=== PATIENT | male | born 1995 | race Caucasian/White ===

== ENCOUNTER 2017-07-15 11:11 | Inpatient (IN) | payer MEDICAID, OTHER ==
[2017-07-15] MEDS ORDERED: MIDAZOLAM 1 MG/ML 2 ML INJ (12:18)
[2017-07-15] MEDS ORDERED: PHENYLephrine (100 MCG/ML) 5ML SYG (12:26)
[2017-07-15] MEDS: FAMOTIDINE 20 MG TAB PO ×2 (12:30→20:19)
[2017-07-15] MEDS ORDERED: niCARdipine 25 MG in SOD CHLORIDE 0.9% 250 ML IV (12:30)
[2017-07-15] MEDS: LEVETIRACETAM 500 MG (PMX) 100 ML IVPB ×2 (13:00→20:18)
[2017-07-15] MEDS ORDERED: morphine 10 MG INJ (13:12)
[2017-07-15] MEDS ORDERED: ROCURONIUM 50 MG INJ ×2 (13:43→13:44)
[2017-07-15] MEDS ORDERED: CEFAZOLIN 1 GM INJ (13:44)
[2017-07-15] MEDS ORDERED: MEPERIDINE 25 MG INJ IV (14:30)
[2017-07-15] MEDS ORDERED: morphine (1 MG/ML) 10ML SYRINGE IV ×2 (14:30)
[2017-07-15] MEDS ORDERED: ONDANSETRON 4 MG INJ IV (14:30)
[2017-07-15] MEDS ORDERED: DIPHENHYDRAMINE 50 MG INJ IV (14:30)
[2017-07-15] MEDS ORDERED: FENTAnyl 50 MCG/ML VIAL IV (14:30)
[2017-07-15] MEDS: POLYMYXIN/BACITRACIN 1L IRRIG (14:42)
[2017-07-15 16:28] LABS: ADD MAN DIFF? NO
[2017-07-15 16:29] LABS: BASOPHILS % 0.2 % (0.0-2.0); EOSINOPHILS # 0.1 10^3/ul (0.0-0.5); EOSINOPHILS % 2.3 % (0.0-7.0); HEMATOCRIT 34.7 % (42.0-52.0); HEMOGLOBIN 11.2 g/dl (14.0-18.0); LYMPHOCYTES # 1.6 10^3/ul (0.8-2.9); LYMPHOCYTES % 24.9 % (15.0-51.0); MEAN CORPUSCULAR HGB CONC 32.3 g/dl (32.0-37.0); MEAN CORPUSCULAR VOLUME 83.6 fl (82.0-101.0); MEAN PLATELET VOLUME 9.1 fl (7.4-10.4); MONOCYTE # 0.4 10^3/ul (0.3-0.9); MONOCYTES % 6.4 % (0.0-11.0); NEUTROPHIL # 4.1 10^3/ul (1.6-7.5); NEUTROPHILS % 65.6 % (39.0-77.0); PLATELET COUNT 240 10^3/UL (140-415); RED BLOOD COUNT 4.15 10^6/ul (4.70-6.10); RED CELL DISTRIBUTION WIDTH 14.6 % (11.5-14.5)
[2017-07-15 16:29] LABS: WHITE BLOOD COUNT 6.2 10^3/ul (4.8-10.8)
[2017-07-15 16:50] LABS: ANION GAP 12 (8-16); CARBON DIOXIDE 29 mmol/L (21-31); CHLORIDE 105 mmol/L (97-110); GLUCOSE 101 mg/dl (70-220)
[2017-07-15 16:52] LABS: BLOOD UREA NITROGEN 7 mg/dl (7-20); CALCIUM 9.4 mg/dl (8.4-10.2); CREATININE 0.69 mg/dl (0.61-1.24); POTASSIUM 3.7 mmol/L (3.5-5.1); SODIUM 142 mmol/L (135-144)
[2017-07-15] MEDS ORDERED: ONDANSETRON 4 MG INJ (20:13)
[2017-07-16] MEDS: ONDANSETRON 4 MG INJ IV ×2 (01:30→07:33)
[2017-07-16] MEDS: morphine 2 MG INJ IV ×3 (03:16→17:54)
[2017-07-16] MEDS: LEVETIRACETAM 500 MG (PMX) 100 ML IVPB ×2 (08:18→20:42)
[2017-07-16] MEDS: FAMOTIDINE 20 MG TAB PO ×2 (08:18→20:42)
[2017-07-16] MEDS: METOCLOPRAMIDE 10 MG INJ IV ×3 (08:18→17:54)
[2017-07-16 08:46] LABS: TOTAL PROTEIN,CSF 14 mg/dl (12-60)
[2017-07-16] MEDS ORDERED: VITAMIN A & D 5 GM OINT PACKET TOP (17:51)
[2017-07-17] MEDS: METOCLOPRAMIDE 10 MG INJ IV ×4 (00:10→17:16)
[2017-07-17] MEDS: HYDROCODONE/APAP (5/325) TAB PO ×2 (03:21→13:08)
[2017-07-17] MEDS: FAMOTIDINE 20 MG TAB PO ×2 (09:05→21:39)
[2017-07-17] MEDS: LEVETIRACETAM 500 MG (PMX) 100 ML IVPB ×2 (09:05→21:40)
[2017-07-18] MEDS: METOCLOPRAMIDE 10 MG INJ IV ×4 (01:28→17:52)
[2017-07-18] MEDS: LEVETIRACETAM 500 MG (PMX) 100 ML IVPB ×2 (08:39→22:08)
[2017-07-18] MEDS: FAMOTIDINE 20 MG TAB PO ×2 (08:39→22:08)
[2017-07-19] MEDS: METOCLOPRAMIDE 10 MG INJ IV ×4 (01:20→17:24)
[2017-07-19 07:03] LABS: ADD MAN DIFF? NO
[2017-07-19 07:09] LABS: BASOPHILS % 0.4 % (0.0-2.0); EOSINOPHILS # 0.3 10^3/ul (0.0-0.5); EOSINOPHILS % 3.1 % (0.0-7.0); HEMATOCRIT 36.1 % (42.0-52.0); HEMOGLOBIN 11.6 g/dl (14.0-18.0); LYMPHOCYTES # 1.5 10^3/ul (0.8-2.9); LYMPHOCYTES % 17.4 % (15.0-51.0); MEAN CORPUSCULAR HEMOGLOBIN 26.8 pg (29.0-33.0); MEAN CORPUSCULAR HGB CONC 32.1 g/dl (32.0-37.0); MEAN CORPUSCULAR VOLUME 83.4 fl (82.0-101.0); MEAN PLATELET VOLUME 9.4 fl (7.4-10.4); MONOCYTE # 0.5 10^3/ul (0.3-0.9); NEUTROPHIL # 6.1 10^3/ul (1.6-7.5); NEUTROPHILS % 72.5 % (39.0-77.0); PLATELET COUNT 275 10^3/UL (140-415); RED BLOOD COUNT 4.33 10^6/ul (4.70-6.10); RED CELL DISTRIBUTION WIDTH 14.9 % (11.5-14.5)
[2017-07-19 07:09] LABS: WHITE BLOOD COUNT 8.4 10^3/ul (4.8-10.8)
[2017-07-19 07:46] LABS: ANION GAP 15 (8-16); BLOOD UREA NITROGEN 10 mg/dl (7-20); CALCIUM 9.5 mg/dl (8.4-10.2); CARBON DIOXIDE 26 mmol/L (21-31); CHLORIDE 105 mmol/L (97-110); CREATININE 0.57 mg/dl (0.61-1.24); GLUCOSE 114 mg/dl (70-220); POTASSIUM 3.9 mmol/L (3.5-5.1); SODIUM 142 mmol/L (135-144)
[2017-07-19] MEDS: FAMOTIDINE 20 MG TAB PO ×2 (08:52→20:54)
[2017-07-19] MEDS: LEVETIRACETAM 500 MG (PMX) 100 ML IVPB ×2 (08:52→20:54)
[2017-07-19] MEDS: HYDROCODONE/APAP (5/325) TAB PO (20:56)
[2017-07-20] MEDS: METOCLOPRAMIDE 10 MG INJ IV ×4 (00:47→17:49)
[2017-07-20] MEDS ORDERED: ROCURONIUM 50 MG INJ ×2 (06:42→09:37)
[2017-07-20] MEDS ORDERED: CEFAZOLIN 1 GM INJ (07:00)
[2017-07-20] MEDS ORDERED: GELATIN SIZE 100 SPONGE (07:05)
[2017-07-20] MEDS ORDERED: BUPIVACAINE 0.5%/EPI (SDV) 30 ML INJ (07:05)
[2017-07-20] MEDS ORDERED: THROMBIN 5000 UNIT VIAL (07:06)
[2017-07-20 07:42] LABS: ADD MAN DIFF? NO
[2017-07-20 07:49] LABS: BASOPHILS % 0.3 % (0.0-2.0); EOSINOPHILS # 0.2 10^3/ul (0.0-0.5); EOSINOPHILS % 1.8 % (0.0-7.0); HEMATOCRIT 36.6 % (42.0-52.0); HEMOGLOBIN 11.9 g/dl (14.0-18.0); LYMPHOCYTES # 1.3 10^3/ul (0.8-2.9); LYMPHOCYTES % 11.6 % (15.0-51.0); MEAN CORPUSCULAR HEMOGLOBIN 26.9 pg (29.0-33.0); MEAN CORPUSCULAR HGB CONC 32.5 g/dl (32.0-37.0); MEAN CORPUSCULAR VOLUME 82.6 fl (82.0-101.0); MEAN PLATELET VOLUME 9.5 fl (7.4-10.4); MONOCYTE # 0.5 10^3/ul (0.3-0.9); MONOCYTES % 4.5 % (0.0-11.0); NEUTROPHIL # 8.9 10^3/ul (1.6-7.5); NEUTROPHILS % 81.3 % (39.0-77.0); PLATELET COUNT 276 10^3/UL (140-415); RED BLOOD COUNT 4.43 10^6/ul (4.70-6.10); RED CELL DISTRIBUTION WIDTH 15.1 % (11.5-14.5)
[2017-07-20 08:05] LABS: INR 1.03; PROTIME 13.6 Sec (11.9-14.9); PT RATIO 1.1
[2017-07-20 08:06] LABS: PARTIAL THROMBOPLASTIN TIME 34.3 Sec (25.0-35.0)
[2017-07-20 08:16] LABS: ANION GAP 17 (8-16); BLOOD UREA NITROGEN 12 mg/dl (7-20); CALCIUM 9.9 mg/dl (8.4-10.2); CARBON DIOXIDE 26 mmol/L (21-31); CHLORIDE 102 mmol/L (97-110); CREATININE 0.62 mg/dl (0.61-1.24); GLUCOSE 110 mg/dl (70-220); POTASSIUM 4.1 mmol/L (3.5-5.1); SODIUM 141 mmol/L (135-144)
[2017-07-20] MEDS ORDERED: FENTAnyl 50 MCG/ML VIAL (09:08)
[2017-07-20] MEDS ORDERED: niCARdipine-NS 0.1MG/ML DRIP 200 ML (09:24)
[2017-07-20] MEDS ORDERED: LABETALOL HCL 20MG INJ ×2 (09:26→10:49)
[2017-07-20] MEDS ORDERED: FENTAnyl 50 MCG/ML VIAL IV ×4 (09:30→13:00)
[2017-07-20] MEDS ORDERED: PROPOFOL 100 ML (09:43)
[2017-07-20] MEDS: niCARdipine 50 MG in SOD CHLORIDE 0.9% 480 ML IV ×2 (10:30→15:04)
[2017-07-20] MEDS: FAMOTIDINE 20 MG TAB PO ×2 (10:30→21:04)
[2017-07-20] MEDS: POLYMYXIN/BACITRACIN 1L IRRIG (11:00)
[2017-07-20] MEDS ORDERED: LORAZEPAM 2 MG INJ (11:21)
[2017-07-20] MEDS: LABETALOL HCL 20MG INJ IV ×2 (11:27→14:23)
[2017-07-20] MEDS ORDERED: PROPOFOL 100 ML IV ×2 (11:30→12:30)
[2017-07-20] MEDS: LEVETIRACETAM 500 MG (PMX) 100 ML IVPB ×2 (11:40→21:25)
[2017-07-20] MEDS: niCARdipine-NS 0.1MG/ML DRIP 200 ML IV (11:40)
[2017-07-20] MEDS: FENTAnyl 50 MCG/ML VIAL IV ×2 (12:45→14:22)
[2017-07-20] MEDS: PROPOFOL 100 ML IV ×3 (13:12→23:00)
[2017-07-20] MEDS: CEFAZOLIN 2 GM/50 ML (PMX) 50 ML IVPB ×2 (14:27→23:18)
[2017-07-20] MEDS: morphine 2 MG INJ IV ×3 (14:28→21:24)
[2017-07-20] MEDS: D5W-0.45 NACL + KCL 20 MEQ 1,000 ML IV (15:42)
[2017-07-20] MEDS: SOD CHLORIDE 0.9% 1,000 ML IV (19:11)
[2017-07-20] MEDS: ACETAMINOPHEN 650MG/20.3ML CUP PO (21:04)
[2017-07-21] MEDS: METOCLOPRAMIDE 10 MG INJ IV ×4 (02:28→18:48)
[2017-07-21] MEDS: morphine 2 MG INJ IV ×5 (02:28→21:54)
[2017-07-21] MEDS: PROPOFOL 100 ML IV ×4 (03:52→20:26)
[2017-07-21] MEDS: D5W-0.45 NACL + KCL 20 MEQ 1,000 ML IV ×3 (03:58→21:30)
[2017-07-21 05:36] LABS: ADD MAN DIFF? NO
[2017-07-21 05:51] LABS: BASOPHILS % 0.2 % (0.0-2.0); EOSINOPHILS # 0.1 10^3/ul (0.0-0.5); EOSINOPHILS % 1.1 % (0.0-7.0); HEMATOCRIT 24.8 % (42.0-52.0); HEMOGLOBIN 8.2 g/dl (14.0-18.0); LYMPHOCYTES # 1.3 10^3/ul (0.8-2.9); LYMPHOCYTES % 10.7 % (15.0-51.0); MEAN CORPUSCULAR HEMOGLOBIN 27.2 pg (29.0-33.0); MEAN CORPUSCULAR HGB CONC 33.1 g/dl (32.0-37.0); MEAN CORPUSCULAR VOLUME 82.4 fl (82.0-101.0); MEAN PLATELET VOLUME 9.9 fl (7.4-10.4); MONOCYTE # 0.9 10^3/ul (0.3-0.9); MONOCYTES % 7.3 % (0.0-11.0); NEUTROPHIL # 9.7 10^3/ul (1.6-7.5); NEUTROPHILS % 79.6 % (39.0-77.0); PLATELET COUNT 223 10^3/UL (140-415); RED BLOOD COUNT 3.01 10^6/ul (4.70-6.10); RED CELL DISTRIBUTION WIDTH 15.5 % (11.5-14.5)
[2017-07-21 05:51] LABS: WHITE BLOOD COUNT 12.2 10^3/ul (4.8-10.8)
[2017-07-21] MEDS: niCARdipine 50 MG in SOD CHLORIDE 0.9% 480 ML IV ×3 (06:06→19:46)
[2017-07-21 06:15] LABS: ALANINE AMINOTRANSFERASE 62 IU/L (13-69); ALBUMIN 2.6 g/dl (3.3-4.9); ALBUMIN/GLOBULIN RATIO 0.92; ALKALINE PHOSPHATASE 99 IU/L (42-121); ANION GAP 11 (8-16); ASPARTATE AMINO TRANSFERASE 22 IU/L (15-46); BILIRUBIN,INDIRECT 0.4 mg/dl (0-1.1); BILIRUBIN,TOTAL 0.4 mg/dl (0.2-1.3); BLOOD UREA NITROGEN 8 mg/dl (7-20); CALCIUM 8.1 mg/dl (8.4-10.2); CARBON DIOXIDE 24 mmol/L (21-31); CHLORIDE 105 mmol/L (97-110); CREATININE 0.63 mg/dl (0.61-1.24); GLUCOSE 120 mg/dl (70-220); POTASSIUM 3.7 mmol/L (3.5-5.1); SODIUM 136 mmol/L (135-144); TOTAL PROTEIN 5.4 g/dl (6.1-8.1)
[2017-07-21] MEDS: CEFAZOLIN 2 GM/50 ML (PMX) 50 ML IVPB ×3 (06:39→21:58)
[2017-07-21] MEDS: FAMOTIDINE 20 MG TAB PO ×2 (09:20→20:27)
[2017-07-21] MEDS: ACETAMINOPHEN 650MG/20.3ML CUP PO ×2 (09:36→20:27)
[2017-07-21] MEDS: LEVETIRACETAM 500 MG (PMX) 100 ML IVPB ×2 (10:24→20:27)
[2017-07-21] MEDS: LORAZEPAM 2 MG INJ IV (23:37)
[2017-07-22] MEDS: METOCLOPRAMIDE 10 MG INJ IV ×4 (01:00→17:44)
[2017-07-22] MEDS: PROPOFOL 100 ML IV ×5 (01:01→22:16)
[2017-07-22] MEDS: D5W-0.45 NACL + KCL 20 MEQ 1,000 ML IV ×2 (04:40→17:17)
[2017-07-22] MEDS: CEFAZOLIN 2 GM/50 ML (PMX) 50 ML IVPB (06:09)
[2017-07-22] MEDS: ACETAMINOPHEN 650MG/20.3ML CUP PO ×2 (06:09→19:21)
[2017-07-22 06:59] LABS: ANION GAP 10 (8-16); BLOOD UREA NITROGEN 3 mg/dl (7-20); CALCIUM 7.7 mg/dl (8.4-10.2); CARBON DIOXIDE 26 mmol/L (21-31); CHLORIDE 105 mmol/L (97-110); CREATININE 0.57 mg/dl (0.61-1.24); GLUCOSE 111 mg/dl (70-220); MAGNESIUM 1.9 mg/dl (1.7-2.5); PHOSPHORUS 2.7 mg/dl (2.5-4.9); SODIUM 138 mmol/L (135-144)
[2017-07-22 07:28] LABS: POTASSIUM 2.9 mmol/L (3.5-5.1)
[2017-07-22 07:49] LABS: ABNORMAL IP MESSAGE 1; MEAN CORPUSCULAR HEMOGLOBIN 27.3 pg (29.0-33.0); MEAN CORPUSCULAR HGB CONC 32.6 g/dl (32.0-37.0); MEAN CORPUSCULAR VOLUME 83.7 fl (82.0-101.0); MEAN PLATELET VOLUME 10.7 fl (7.4-10.4); PLATELET COUNT 138 10^3/UL (140-415); POSITIVE DIFF @See below; RED BLOOD COUNT 2.27 10^6/ul (4.70-6.10); RED CELL DISTRIBUTION WIDTH 15.1 % (11.5-14.5)
[2017-07-22 07:49] LABS: WHITE BLOOD COUNT 11.4 10^3/ul (4.8-10.8)
[2017-07-22 07:55] LABS: ADD MAN DIFF? YES; HEMOGLOBIN 6.2 g/dl (14.0-18.0)
[2017-07-22 08:46] LABS: AADO2 Arterial 63.2 mmHg (7.0-24.0); Arterial Base Excess 0.5 mmol/L (-3.0-3); Arterial Blood Gas Oxygen Sat 98.9 mmHG (95.0-98.0); Arterial COHb 0.3 % (0.0-3.0); Arterial Fraction of Oxyhgb 98.2 % (93.0-99.0); Arterial HCO3 24.5 mmol/L (22.0-26.0); Arterial MetHb 0.4 % (0.0-1.5); Arterial Total Hemglobin 6.1 g/dl (12.0-18.0); Arterial pCO2 36.2 mmhg (35-45); MODE VENT - AC; Site A-Line
[2017-07-22] MEDS: FAMOTIDINE 20 MG TAB PO ×2 (09:14→20:36)
[2017-07-22] MEDS: morphine 2 MG INJ IV (09:14)
[2017-07-22 09:15] LABS: WHITE BLOOD COUNT 10.8 10^3/ul (4.8-10.8)
[2017-07-22 09:15] LABS: ABNORMAL IP MESSAGE 1; HEMATOCRIT 18.2 % (42.0-52.0); MEAN CORPUSCULAR HEMOGLOBIN 27.6 pg (29.0-33.0); MEAN CORPUSCULAR VOLUME 83.9 fl (82.0-101.0); MEAN PLATELET VOLUME 9.7 fl (7.4-10.4); PLATELET COUNT 160 10^3/UL (140-415); POSITIVE DIFF @See below; RED BLOOD COUNT 2.17 10^6/ul (4.70-6.10); RED CELL DISTRIBUTION WIDTH 15.1 % (11.5-14.5)
[2017-07-22] MEDS: LEVETIRACETAM 500 MG (PMX) 100 ML IVPB ×2 (09:15→20:36)
[2017-07-22 09:19] LABS: ADD MAN DIFF? YES
[2017-07-22 09:37] LABS: ANION GAP 8 (8-16); BLOOD UREA NITROGEN 3 mg/dl (7-20); CALCIUM 7.7 mg/dl (8.4-10.2); CARBON DIOXIDE 27 mmol/L (21-31); CHLORIDE 105 mmol/L (97-110); CREATININE 0.57 mg/dl (0.61-1.24); GLUCOSE 107 mg/dl (70-220); SODIUM 137 mmol/L (135-144)
[2017-07-22 09:48] LABS: POTASSIUM 2.9 mmol/L (3.5-5.1)
[2017-07-22 10:21] LABS: ANISOCYTOSIS 1+ (0-0); BAND NEUTROPHILS #M 0.4 10^3/ul (0.0-0.6); BAND NEUTROPHILS % (M) 4 % (0-4); BASOPHIL #M 0.1 10^3/ul (0.0-0.0); BASOPHILS % (M) 1 % (0-2); EOSINOPHILS % (M) 1 % (0-7); HYPOCHROMASIA 1+ (0-0); LYMPHOCYTES #M 2.7 10^3/ul (0.8-2.9); LYMPHOCYTES % (M) 24 % (15-51); MICROCYTOSIS 1+ (0-0); MONOCYTES % (M) 9 % (0-11); PLATELET ESTIMATE DECREASED; SEGMENTED NEUTROPHILS (M) % 61 % (39-77); SMUDGE%M 120 % (0-0)
[2017-07-22 10:30] LABS: ANISOCYTOSIS 1+ (0-0); BAND NEUTROPHILS #M 0.2 10^3/ul (0.0-0.6); BAND NEUTROPHILS % (M) 2 % (0-4); EOSINOPHILS % (M) 1 % (0-7); ERYTHROBLAST% (NRBC) (M) 1 % (0-0); GIANT THROMBO% (M) 4 % (0-0); HYPOCHROMASIA 1+ (0-0); LYMPHOCYTES #M 1.9 10^3/ul (0.8-2.9); LYMPHOCYTES % (M) 18 % (15-51); METAMYELOCYTES #M 0.1 10^3/ul (0.0-0.0); METAMYELOCYTES %M 1 % (0-0); MICROCYTOSIS 1+ (0-0); MONOCYTE #M 0.1 10^3/ul (0.3-0.9); MONOCYTES % (M) 1 % (0-11); PLATELET ESTIMATE NORMAL; POIKILOCYTOSIS 1+ (0-0); SEG NEUT #M 8.3 10^3/ul (1.7-7.5); SEGMENTED NEUTROPHILS (M) % 77 % (39-77)
[2017-07-22] MEDS: POTASSIUM CHLORIDE 20 MEQ POWDER FOR ORAL SOLN GTB (11:28)
[2017-07-22] MEDS: POTASSIUM CHLORIDE 250 ML IVPB (11:29)
[2017-07-22] MEDS: LORAZEPAM 2 MG INJ IV ×2 (12:23→23:07)
[2017-07-22 13:16] LABS: IMMEDIATE SPIN CROSSMATCH 1 2
[2017-07-22] MEDS ORDERED: VANCOMYCIN IV PER PHARMACY XX (14:30)
[2017-07-22] MEDS: VANCOMYCIN 1.5 GM in SOD CHLORIDE 0.9% 250 ML IVPB (16:30)
[2017-07-23] MEDS: METOCLOPRAMIDE 10 MG INJ IV ×4 (01:05→19:45)
[2017-07-23] MEDS: VANCOMYCIN 1.25 GM in SOD CHLORIDE 0.9% 250 ML IVPB ×2 (01:05→10:46)
[2017-07-23] MEDS: PROPOFOL 100 ML IV ×5 (03:24→22:01)
[2017-07-23 05:22] LABS: ADD MAN DIFF? NO
[2017-07-23 05:32] LABS: WHITE BLOOD COUNT 13.6 10^3/ul (4.8-10.8)
[2017-07-23 05:32] LABS: BASOPHILS % 0.2 % (0.0-2.0); EOSINOPHILS # 0.1 10^3/ul (0.0-0.5); EOSINOPHILS % 0.6 % (0.0-7.0); HEMOGLOBIN 8.7 g/dl (14.0-18.0); LYMPHOCYTES % 7.2 % (15.0-51.0); MEAN CORPUSCULAR HEMOGLOBIN 28.5 pg (29.0-33.0); MEAN CORPUSCULAR HGB CONC 33.5 g/dl (32.0-37.0); MEAN CORPUSCULAR VOLUME 85.2 fl (82.0-101.0); MEAN PLATELET VOLUME 9.5 fl (7.4-10.4); MONOCYTE # 0.7 10^3/ul (0.3-0.9); MONOCYTES % 5.4 % (0.0-11.0); NEUTROPHIL # 11.7 10^3/ul (1.6-7.5); NEUTROPHILS % 85.8 % (39.0-77.0); PLATELET COUNT 185 10^3/UL (140-415); RED BLOOD COUNT 3.05 10^6/ul (4.70-6.10); RED CELL DISTRIBUTION WIDTH 14.8 % (11.5-14.5)
[2017-07-23] MEDS: ACETAMINOPHEN 650MG/20.3ML CUP PO ×2 (05:41→16:22)
[2017-07-23] MEDS: D5W-0.45 NACL + KCL 20 MEQ 1,000 ML IV ×2 (05:41→20:53)
[2017-07-23 06:07] LABS: ANION GAP 8 (8-16); CALCIUM 8.2 mg/dl (8.4-10.2); CARBON DIOXIDE 30 mmol/L (21-31); CHLORIDE 104 mmol/L (97-110); CREATININE 0.52 mg/dl (0.61-1.24); GLUCOSE 104 mg/dl (70-220); MAGNESIUM 1.9 mg/dl (1.7-2.5); PHOSPHORUS 2.7 mg/dl (2.5-4.9); POTASSIUM 3.1 mmol/L (3.5-5.1); SODIUM 139 mmol/L (135-144)
[2017-07-23 06:19] LABS: BLOOD UREA NITROGEN < 2 mg/dl (7-20)
[2017-07-23] MEDS: LEVETIRACETAM 500 MG (PMX) 100 ML IVPB ×2 (09:01→21:05)
[2017-07-23] MEDS: FAMOTIDINE 20 MG TAB PO ×2 (09:01→21:11)
[2017-07-23] MEDS: POTASSIUM CHLORIDE 250 ML IVPB (09:28)
[2017-07-23] MEDS: CEFEPIME 1GM/50 ML (PMX) 50 ML IVPB ×2 (16:19→21:05)
[2017-07-23 16:40] LABS: VANCOMYCIN,TROUGH 33.3 ug/ml (10.0-20.0)
[2017-07-23 18:09] LABS: PRETRANSFUSION BILIRUBIN 0.1 mg/dl
[2017-07-23 18:09] LABS: POST-TRANSFUSION BILIRUBIN 0.4 mg/dl
[2017-07-24] MEDS: D5W-0.45 NACL + KCL 20 MEQ 1,000 ML IV ×2 (00:27→07:06)
[2017-07-24] MEDS: METOCLOPRAMIDE 10 MG INJ IV ×4 (00:33→18:13)
[2017-07-24] MEDS: morphine 2 MG INJ IV ×3 (01:33→19:41)
[2017-07-24] MEDS: VANCOMYCIN 1.25 GM in SOD CHLORIDE 0.9% 250 ML IVPB ×2 (02:16→14:26)
[2017-07-24] MEDS: PROPOFOL 100 ML IV ×2 (03:03→07:06)
[2017-07-24 04:18] LABS: ADD UMIC NO; UR ASCORBIC ACID NEGATIVE (NEGATIVE); UR BACTERIA FEW /HPF (NONE SEEN); UR BILIRUBIN (Dip) NEGATIVE (NEGATIVE); UR BLOOD (Dip) NEGATIVE (NEGATIVE); UR CLARITY CLEAR (CLEAR); UR COLOR YELLOW (YELLOW); UR GLUCOSE (Dip) NEGATIVE (NEGATIVE); UR KETONES (Dip) TRACE mg/dL (NEGATIVE); UR LEUKOCYTE ESTERASE (Dip) NEGATIVE Leu/ul (NEGATIVE); UR MUCUS FEW /HPF (NONE SEEN); UR NITRITE (Dip) NEGATIVE (NEGATIVE); UR RBC 2 /HPF (0-5); UR SPECIFIC GRAVITY (Dip) 1.014 (1.003-1.030); UR TOTAL PROTEIN (Dip) NEGATIVE (NEGATIVE); UR UROBILINOGEN (Dip) NEGATIVE (NEGATIVE); UR WBC 1 /HPF (0-5)
[2017-07-24 05:43] LABS: ADD MAN DIFF? NO
[2017-07-24 05:46] LABS: WHITE BLOOD COUNT 10.3 10^3/ul (4.8-10.8)
[2017-07-24 05:46] LABS: BASOPHILS % 0.2 % (0.0-2.0); EOSINOPHILS # 0.2 10^3/ul (0.0-0.5); EOSINOPHILS % 1.8 % (0.0-7.0); HEMATOCRIT 24.4 % (42.0-52.0); LYMPHOCYTES % 9.3 % (15.0-51.0); MEAN CORPUSCULAR HEMOGLOBIN 28.5 pg (29.0-33.0); MEAN CORPUSCULAR HGB CONC 32.8 g/dl (32.0-37.0); MEAN CORPUSCULAR VOLUME 86.8 fl (82.0-101.0); MEAN PLATELET VOLUME 9.7 fl (7.4-10.4); MONOCYTE # 0.5 10^3/ul (0.3-0.9); MONOCYTES % 5.1 % (0.0-11.0); NEUTROPHIL # 8.5 10^3/ul (1.6-7.5); NEUTROPHILS % 82.7 % (39.0-77.0); PLATELET COUNT 205 10^3/UL (140-415); RED BLOOD COUNT 2.81 10^6/ul (4.70-6.10)
[2017-07-24] MEDS: ACETAMINOPHEN 650MG/20.3ML CUP PO ×2 (06:30→19:40)
[2017-07-24 06:36] LABS: ALANINE AMINOTRANSFERASE 52 IU/L (13-69); ALBUMIN 2.6 g/dl (3.3-4.9); ALBUMIN/GLOBULIN RATIO 0.86; ALKALINE PHOSPHATASE 134 IU/L (42-121); ANION GAP 9 (8-16); ASPARTATE AMINO TRANSFERASE 26 IU/L (15-46); BILIRUBIN,INDIRECT 0.2 mg/dl (0-1.1); BILIRUBIN,TOTAL 0.2 mg/dl (0.2-1.3); CALCIUM 8.1 mg/dl (8.4-10.2); CARBON DIOXIDE 30 mmol/L (21-31); CHLORIDE 104 mmol/L (97-110); CREATININE 0.56 mg/dl (0.61-1.24); GLUCOSE 107 mg/dl (70-220); POTASSIUM 3.3 mmol/L (3.5-5.1); SODIUM 140 mmol/L (135-144); TOTAL PROTEIN 5.6 g/dl (6.1-8.1)
[2017-07-24 06:39] LABS: BLOOD UREA NITROGEN < 2 mg/dl (7-20)
[2017-07-24] MEDS: LEVETIRACETAM 500 MG (PMX) 100 ML IVPB ×2 (10:07→21:23)
[2017-07-24] MEDS: FAMOTIDINE 20 MG TAB PO ×2 (10:07→21:22)
[2017-07-24] MEDS: CEFEPIME 1GM/50 ML (PMX) 50 ML IVPB ×2 (10:07→21:22)
[2017-07-24] MEDS: LORAZEPAM 2 MG INJ IV (17:36)
[2017-07-24] MEDS: POTASSIUM CHLORIDE 20 MEQ in DEXTROSE 5% 100 ML IVPB (21:22)
[2017-07-25] MEDS: LORAZEPAM 2 MG INJ IV ×7 (00:28→22:44)
[2017-07-25] MEDS: METOCLOPRAMIDE 10 MG INJ IV ×4 (00:28→17:30)
[2017-07-25] MEDS: HYDROCODONE/APAP (5/325) TAB PO ×2 (00:29→08:55)
[2017-07-25] MEDS: VANCOMYCIN 1.25 GM in SOD CHLORIDE 0.9% 250 ML IVPB ×3 (06:50→15:50)
[2017-07-25] MEDS: morphine 2 MG INJ IV ×3 (06:51→22:43)
[2017-07-25 07:27] LABS: ALANINE AMINOTRANSFERASE 58 IU/L (13-69); ALBUMIN/GLOBULIN RATIO 0.88; ALKALINE PHOSPHATASE 134 IU/L (42-121); ANION GAP 13 (8-16); ASPARTATE AMINO TRANSFERASE 25 IU/L (15-46); BILIRUBIN,INDIRECT 0.3 mg/dl (0-1.1); BILIRUBIN,TOTAL 0.3 mg/dl (0.2-1.3); BLOOD UREA NITROGEN 2 mg/dl (7-20); CALCIUM 8.6 mg/dl (8.4-10.2); CARBON DIOXIDE 28 mmol/L (21-31); CHLORIDE 103 mmol/L (97-110); CREATININE 0.48 mg/dl (0.61-1.24); GLUCOSE 114 mg/dl (70-220); POTASSIUM 3.4 mmol/L (3.5-5.1); SODIUM 141 mmol/L (135-144); TOTAL PROTEIN 6.4 g/dl (6.1-8.1)
[2017-07-25] MEDS: FAMOTIDINE 20 MG TAB PO ×2 (08:44→20:49)
[2017-07-25] MEDS: CEFEPIME 1GM/50 ML (PMX) 50 ML IVPB ×2 (08:44→20:49)
[2017-07-25] MEDS: LEVETIRACETAM 500 MG (PMX) 100 ML IVPB ×2 (08:45→20:49)
[2017-07-25] MEDS: POTASSIUM CHLORIDE 20 MEQ POWDER FOR ORAL SOLN GTB (13:34)
[2017-07-25 15:51] LABS: VANCOMYCIN,TROUGH < 5.0 ug/ml (10.0-20.0)
[2017-07-26] MEDS: METOCLOPRAMIDE 10 MG INJ IV ×5 (01:01→23:35)
[2017-07-26] MEDS: VANCOMYCIN 1.25 GM in SOD CHLORIDE 0.9% 250 ML IVPB ×4 (01:01→23:35)
[2017-07-26] MEDS: LORAZEPAM 2 MG INJ IV ×6 (01:05→20:56)
[2017-07-26] MEDS: morphine 2 MG INJ IV ×2 (04:53→15:32)
[2017-07-26 05:00] LABS: ADD MAN DIFF? NO
[2017-07-26 05:02] LABS: WHITE BLOOD COUNT 6.3 10^3/ul (4.8-10.8)
[2017-07-26 05:02] LABS: BASOPHILS % 0.5 % (0.0-2.0); EOSINOPHILS # 0.2 10^3/ul (0.0-0.5); EOSINOPHILS % 3.6 % (0.0-7.0); HEMATOCRIT 25.7 % (42.0-52.0); HEMOGLOBIN 8.5 g/dl (14.0-18.0); LYMPHOCYTES # 1.2 10^3/ul (0.8-2.9); LYMPHOCYTES % 19.2 % (15.0-51.0); MEAN CORPUSCULAR HEMOGLOBIN 28.1 pg (29.0-33.0); MEAN CORPUSCULAR HGB CONC 33.1 g/dl (32.0-37.0); MEAN CORPUSCULAR VOLUME 85.1 fl (82.0-101.0); MONOCYTE # 0.5 10^3/ul (0.3-0.9); MONOCYTES % 7.3 % (0.0-11.0); NEUTROPHIL # 4.3 10^3/ul (1.6-7.5); NEUTROPHILS % 67.7 % (39.0-77.0); PLATELET COUNT 260 10^3/UL (140-415); RED BLOOD COUNT 3.02 10^6/ul (4.70-6.10); RED CELL DISTRIBUTION WIDTH 15.1 % (11.5-14.5)
[2017-07-26 05:29] LABS: ANION GAP 14 (8-16); BLOOD UREA NITROGEN 4 mg/dl (7-20); CALCIUM 8.9 mg/dl (8.4-10.2); CARBON DIOXIDE 28 mmol/L (21-31); CHLORIDE 102 mmol/L (97-110); CREATININE 0.49 mg/dl (0.61-1.24); GLUCOSE 112 mg/dl (70-220); POTASSIUM 3.6 mmol/L (3.5-5.1); SODIUM 140 mmol/L (135-144)
[2017-07-26] MEDS: FAMOTIDINE 20 MG TAB PO ×2 (08:31→20:55)
[2017-07-26] MEDS: LEVETIRACETAM 500 MG (PMX) 100 ML IVPB (12:18)
[2017-07-26] MEDS: ACETAMINOPHEN 650MG/20.3ML CUP PO (12:25)
[2017-07-26] MEDS: CEFEPIME 1GM/50 ML (PMX) 50 ML IVPB ×2 (12:59→20:55)
[2017-07-26] MEDS: LEVETIRACETAM 500 MG TAB PO (20:55)
[2017-07-26 22:24] LABS: VANCOMYCIN,TROUGH 18.5 ug/ml (10.0-20.0)
[2017-07-27] MEDS: LORAZEPAM 2 MG INJ IV ×5 (03:53→21:21)
[2017-07-27 05:20] LABS: ADD MAN DIFF? NO
[2017-07-27 05:27] LABS: WHITE BLOOD COUNT 6.5 10^3/ul (4.8-10.8)
[2017-07-27 05:27] LABS: BASOPHILS % 0.5 % (0.0-2.0); EOSINOPHILS # 0.3 10^3/ul (0.0-0.5); EOSINOPHILS % 3.9 % (0.0-7.0); HEMATOCRIT 28.4 % (42.0-52.0); HEMOGLOBIN 9.2 g/dl (14.0-18.0); LYMPHOCYTES # 1.1 10^3/ul (0.8-2.9); LYMPHOCYTES % 16.8 % (15.0-51.0); MEAN CORPUSCULAR HEMOGLOBIN 27.5 pg (29.0-33.0); MEAN CORPUSCULAR HGB CONC 32.4 g/dl (32.0-37.0); MEAN CORPUSCULAR VOLUME 84.8 fl (82.0-101.0); MEAN PLATELET VOLUME 8.8 fl (7.4-10.4); MONOCYTE # 0.4 10^3/ul (0.3-0.9); MONOCYTES % 6.8 % (0.0-11.0); NEUTROPHIL # 4.5 10^3/ul (1.6-7.5); NEUTROPHILS % 69.1 % (39.0-77.0); PLATELET COUNT 322 10^3/UL (140-415); POSITIVE DIFF @See below; RED BLOOD COUNT 3.35 10^6/ul (4.70-6.10); RED CELL DISTRIBUTION WIDTH 14.7 % (11.5-14.5)
[2017-07-27] MEDS: METOCLOPRAMIDE 10 MG INJ IV ×3 (05:32→17:10)
[2017-07-27 05:49] LABS: ANION GAP 14 (8-16); BLOOD UREA NITROGEN 4 mg/dl (7-20); CALCIUM 9.1 mg/dl (8.4-10.2); CARBON DIOXIDE 28 mmol/L (21-31); CHLORIDE 102 mmol/L (97-110); GLUCOSE 116 mg/dl (70-220); POTASSIUM 3.7 mmol/L (3.5-5.1); SODIUM 140 mmol/L (135-144)
[2017-07-27] MEDS: VANCOMYCIN 1 GM in NS 250 ML IVPB (08:26)
[2017-07-27] MEDS: LEVETIRACETAM 500 MG TAB PO ×2 (08:37→21:21)
[2017-07-27] MEDS: FAMOTIDINE 20 MG TAB PO ×2 (08:37→21:21)
[2017-07-27] MEDS: CEFEPIME 1GM/50 ML (PMX) 50 ML IVPB (10:41)
[2017-07-28] MEDS: METOCLOPRAMIDE 10 MG INJ IV ×3 (01:16→12:00)
[2017-07-28] MEDS: LORAZEPAM 2 MG INJ IV ×2 (04:13→21:58)
[2017-07-28 08:24] LABS: ADD MAN DIFF? NO
[2017-07-28 08:30] LABS: BASOPHIL # 0.1 10^3/ul (0.0-0.1); BASOPHILS % 0.7 % (0.0-2.0); EOSINOPHILS # 0.2 10^3/ul (0.0-0.5); EOSINOPHILS % 2.6 % (0.0-7.0); HEMATOCRIT 30.8 % (42.0-52.0); HEMOGLOBIN 9.9 g/dl (14.0-18.0); LYMPHOCYTES # 1.6 10^3/ul (0.8-2.9); LYMPHOCYTES % 17.8 % (15.0-51.0); MEAN CORPUSCULAR HEMOGLOBIN 27.2 pg (29.0-33.0); MEAN CORPUSCULAR HGB CONC 32.1 g/dl (32.0-37.0); MEAN CORPUSCULAR VOLUME 84.6 fl (82.0-101.0); MONOCYTE # 0.6 10^3/ul (0.3-0.9); MONOCYTES % 7.3 % (0.0-11.0); NEUTROPHILS % 68.7 % (39.0-77.0); PLATELET COUNT 406 10^3/UL (140-415); POSITIVE DIFF @See below; RED BLOOD COUNT 3.64 10^6/ul (4.70-6.10); RED CELL DISTRIBUTION WIDTH 14.9 % (11.5-14.5)
[2017-07-28 08:30] LABS: WHITE BLOOD COUNT 8.7 10^3/ul (4.8-10.8)
[2017-07-28 08:53] LABS: ANION GAP 15 (8-16); BLOOD UREA NITROGEN 9 mg/dl (7-20); CALCIUM 9.4 mg/dl (8.4-10.2); CARBON DIOXIDE 28 mmol/L (21-31); CHLORIDE 100 mmol/L (97-110); CREATININE 0.54 mg/dl (0.61-1.24); GLUCOSE 126 mg/dl (70-220); POTASSIUM 3.9 mmol/L (3.5-5.1); SODIUM 139 mmol/L (135-144)
[2017-07-28] MEDS: FAMOTIDINE 20 MG TAB PO ×2 (09:10→20:15)
[2017-07-28] MEDS: LEVETIRACETAM 500 MG TAB PO ×2 (09:10→20:14)
[2017-07-28] MEDS: METOCLOPRAMIDE (1 MG/ML) 10 ML CUP PEG (17:18)
[2017-07-29] MEDS: METOCLOPRAMIDE (1 MG/ML) 10 ML CUP PEG ×4 (00:12→18:08)
[2017-07-29] MEDS: FAMOTIDINE 20 MG TAB PO ×2 (08:10→21:43)
[2017-07-29] MEDS: LEVETIRACETAM 500 MG TAB PO ×2 (08:10→21:43)
[2017-07-29] MEDS: LORAZEPAM 2 MG INJ IV (08:10)
[2017-07-29 09:29] LABS: ADD MAN DIFF? NO
[2017-07-29 09:40] LABS: WHITE BLOOD COUNT 9.9 10^3/ul (4.8-10.8)
[2017-07-29 09:40] LABS: BASOPHIL # 0.1 10^3/ul (0.0-0.1); BASOPHILS % 0.7 % (0.0-2.0); EOSINOPHILS # 0.3 10^3/ul (0.0-0.5); EOSINOPHILS % 2.7 % (0.0-7.0); HEMATOCRIT 33.5 % (42.0-52.0); HEMOGLOBIN 10.7 g/dl (14.0-18.0); LYMPHOCYTES # 1.6 10^3/ul (0.8-2.9); LYMPHOCYTES % 16.6 % (15.0-51.0); MEAN CORPUSCULAR HEMOGLOBIN 27.6 pg (29.0-33.0); MEAN CORPUSCULAR HGB CONC 31.9 g/dl (32.0-37.0); MEAN CORPUSCULAR VOLUME 86.6 fl (82.0-101.0); MEAN PLATELET VOLUME 8.9 fl (7.4-10.4); MONOCYTE # 0.7 10^3/ul (0.3-0.9); MONOCYTES % 6.8 % (0.0-11.0); NEUTROPHIL # 6.8 10^3/ul (1.6-7.5); NEUTROPHILS % 69.2 % (39.0-77.0); PLATELET COUNT 465 10^3/UL (140-415); RED BLOOD COUNT 3.87 10^6/ul (4.70-6.10); RED CELL DISTRIBUTION WIDTH 15.1 % (11.5-14.5)
[2017-07-29 10:05] LABS: ANION GAP 14 (8-16); BLOOD UREA NITROGEN 9 mg/dl (7-20); CALCIUM 9.4 mg/dl (8.4-10.2); CARBON DIOXIDE 28 mmol/L (21-31); CHLORIDE 100 mmol/L (97-110); CREATININE 0.53 mg/dl (0.61-1.24); GLUCOSE 123 mg/dl (70-220); POTASSIUM 3.9 mmol/L (3.5-5.1); SODIUM 138 mmol/L (135-144)
[2017-07-29] MEDS: NYSTATIN 30 GM POWDER BTL TOP (18:08)
[2017-07-29] MEDS: DIPHENHYDRAMINE 50 MG INJ IV (18:08)
[2017-07-29] MEDS: ALBUTEROL/IPRATROPIUM (NEB) 3 ML AMP HHN (19:32)
[2017-07-29] MEDS: HYDROCODONE/APAP (5/325) TAB PO (21:44)
[2017-07-30] MEDS: METOCLOPRAMIDE (1 MG/ML) 10 ML CUP PEG ×5 (06:17→23:59)
[2017-07-30] MEDS: ALBUTEROL/IPRATROPIUM (NEB) 3 ML AMP HHN ×3 (08:25→20:12)
[2017-07-30] MEDS: FAMOTIDINE 20 MG TAB PO ×2 (09:01→21:25)
[2017-07-30] MEDS: LEVETIRACETAM 500 MG TAB PO ×2 (09:01→21:25)
[2017-07-30] MEDS: NYSTATIN 30 GM POWDER BTL TOP (09:02)
[2017-07-30] MEDS: HYDROCODONE/APAP (5/325) TAB PO (09:58)
[2017-07-30] MEDS: LORAZEPAM 2 MG INJ IV (23:18)
[2017-07-31] MEDS: METOCLOPRAMIDE (1 MG/ML) 10 ML CUP PEG ×3 (05:59→17:30)
[2017-07-31] MEDS: LEVETIRACETAM 500 MG TAB PO ×2 (08:35→20:49)
[2017-07-31] MEDS: FAMOTIDINE 20 MG TAB PO ×2 (08:35→20:49)
[2017-07-31] MEDS: NYSTATIN 30 GM POWDER BTL TOP (08:41)
[2017-07-31] MEDS: LORAZEPAM 2 MG INJ IV ×2 (08:43→18:44)
[2017-07-31] MEDS: ALBUTEROL/IPRATROPIUM (NEB) 3 ML AMP HHN ×3 (09:04→21:19)
[2017-07-31] MEDS: DIPHENHYDRAMINE 50 MG INJ IV (19:58)
[2017-08-01] MEDS: METOCLOPRAMIDE (1 MG/ML) 10 ML CUP PEG ×4 (01:05→17:47)
[2017-08-01] MEDS: LORAZEPAM 2 MG INJ IV (05:26)
[2017-08-01] MEDS: FAMOTIDINE 20 MG TAB PO ×2 (08:17→20:40)
[2017-08-01] MEDS: LEVETIRACETAM 500 MG TAB PO ×2 (08:17→20:40)
[2017-08-01] MEDS: NYSTATIN 30 GM POWDER BTL TOP (08:23)
[2017-08-01 09:05] LABS: ADD MAN DIFF? NO
[2017-08-01 09:08] LABS: WHITE BLOOD COUNT 6.2 10^3/ul (4.8-10.8)
[2017-08-01 09:08] LABS: BASOPHILS % 0.5 % (0.0-2.0); EOSINOPHILS # 0.2 10^3/ul (0.0-0.5); EOSINOPHILS % 3.5 % (0.0-7.0); HEMATOCRIT 30.7 % (42.0-52.0); LYMPHOCYTES # 1.5 10^3/ul (0.8-2.9); LYMPHOCYTES % 24.6 % (15.0-51.0); MEAN CORPUSCULAR HEMOGLOBIN 27.5 pg (29.0-33.0); MEAN CORPUSCULAR HGB CONC 32.6 g/dl (32.0-37.0); MEAN CORPUSCULAR VOLUME 84.3 fl (82.0-101.0); MONOCYTE # 0.5 10^3/ul (0.3-0.9); MONOCYTES % 7.2 % (0.0-11.0); NEUTROPHIL # 3.8 10^3/ul (1.6-7.5); NEUTROPHILS % 61.5 % (39.0-77.0); PLATELET COUNT 375 10^3/UL (140-415); RED BLOOD COUNT 3.64 10^6/ul (4.70-6.10); RED CELL DISTRIBUTION WIDTH 15.2 % (11.5-14.5)
[2017-08-01 09:31] LABS: ANION GAP 14 (8-16); BLOOD UREA NITROGEN 9 mg/dl (7-20); CALCIUM 9.5 mg/dl (8.4-10.2); CARBON DIOXIDE 29 mmol/L (21-31); CHLORIDE 99 mmol/L (97-110); GLUCOSE 116 mg/dl (70-220); POTASSIUM 3.9 mmol/L (3.5-5.1); SODIUM 138 mmol/L (135-144)
[2017-08-01] MEDS: ALBUTEROL/IPRATROPIUM (NEB) 3 ML AMP HHN ×3 (10:29→19:48)
[2017-08-02] MEDS: METOCLOPRAMIDE (1 MG/ML) 10 ML CUP PEG ×4 (00:08→17:36)
[2017-08-02] MEDS: DIPHENHYDRAMINE 50 MG INJ IV (00:08)
[2017-08-02] MEDS: morphine 2 MG INJ IV (07:28)
[2017-08-02] MEDS: ALBUTEROL/IPRATROPIUM (NEB) 3 ML AMP HHN ×3 (08:51→21:00)
[2017-08-02] MEDS: LEVETIRACETAM 500 MG TAB PO ×2 (09:18→20:39)
[2017-08-02] MEDS: FAMOTIDINE 20 MG TAB PO ×2 (09:18→20:39)
[2017-08-02] MEDS: NYSTATIN 30 GM POWDER BTL TOP (09:18)
[2017-08-02] MEDS: LORAZEPAM 2 MG INJ IV ×2 (09:19→15:25)
[2017-08-02] MEDS: HYDROCODONE/APAP (5/325) TAB PO (20:39)
[2017-08-03] MEDS: METOCLOPRAMIDE (1 MG/ML) 10 ML CUP PEG ×4 (00:36→17:29)
[2017-08-03] MEDS: HYDROCODONE/APAP (5/325) TAB PO (00:37)
[2017-08-03] MEDS: DIPHENHYDRAMINE 50 MG INJ IV (00:37)
[2017-08-03] MEDS: ALBUTEROL/IPRATROPIUM (NEB) 3 ML AMP HHN ×3 (08:08→19:54)
[2017-08-03] MEDS: NYSTATIN 30 GM POWDER BTL TOP (08:27)
[2017-08-03] MEDS: FAMOTIDINE 20 MG TAB PO ×2 (08:27→20:34)
[2017-08-03] MEDS: LEVETIRACETAM 500 MG TAB PO ×2 (08:27→20:34)
[2017-08-03 08:46] LABS: ADD MAN DIFF? NO
[2017-08-03 09:01] LABS: BASOPHILS % 0.3 % (0.0-2.0); EOSINOPHILS # 0.2 10^3/ul (0.0-0.5); EOSINOPHILS % 3.8 % (0.0-7.0); HEMATOCRIT 31.3 % (42.0-52.0); HEMOGLOBIN 10.2 g/dl (14.0-18.0); LYMPHOCYTES # 1.5 10^3/ul (0.8-2.9); LYMPHOCYTES % 24.3 % (15.0-51.0); MEAN CORPUSCULAR HEMOGLOBIN 27.9 pg (29.0-33.0); MEAN CORPUSCULAR HGB CONC 32.6 g/dl (32.0-37.0); MEAN CORPUSCULAR VOLUME 85.5 fl (82.0-101.0); MEAN PLATELET VOLUME 9.2 fl (7.4-10.4); MONOCYTE # 0.4 10^3/ul (0.3-0.9); MONOCYTES % 5.6 % (0.0-11.0); NEUTROPHILS % 63.4 % (39.0-77.0); PLATELET COUNT 333 10^3/UL (140-415); RED BLOOD COUNT 3.66 10^6/ul (4.70-6.10); RED CELL DISTRIBUTION WIDTH 15.1 % (11.5-14.5)
[2017-08-03 09:01] LABS: WHITE BLOOD COUNT 6.3 10^3/ul (4.8-10.8)
[2017-08-03 09:21] LABS: ANION GAP 12 (8-16); BLOOD UREA NITROGEN 10 mg/dl (7-20); CALCIUM 9.4 mg/dl (8.4-10.2); CARBON DIOXIDE 29 mmol/L (21-31); CHLORIDE 101 mmol/L (97-110); CREATININE 0.62 mg/dl (0.61-1.24); GLUCOSE 104 mg/dl (70-220); SODIUM 138 mmol/L (135-144)
[2017-08-03] MEDS: LORAZEPAM 2 MG INJ IV (14:53)
[2017-08-04] MEDS: METOCLOPRAMIDE (1 MG/ML) 10 ML CUP PEG ×5 (00:45→23:08)
[2017-08-04] MEDS: DIPHENHYDRAMINE 50 MG INJ IV ×3 (02:07→23:05)
[2017-08-04] MEDS: LORAZEPAM 2 MG INJ IV ×2 (07:49→14:43)
[2017-08-04] MEDS: ALBUTEROL/IPRATROPIUM (NEB) 3 ML AMP HHN ×3 (07:58→19:30)
[2017-08-04] MEDS: NYSTATIN 30 GM POWDER BTL TOP (08:10)
[2017-08-04] MEDS: FAMOTIDINE 20 MG TAB PO ×2 (08:10→20:30)
[2017-08-04] MEDS: LEVETIRACETAM 500 MG TAB PO ×2 (08:10→20:30)
[2017-08-05] MEDS: LORAZEPAM 2 MG INJ IV (03:42)
[2017-08-05] MEDS: METOCLOPRAMIDE (1 MG/ML) 10 ML CUP PEG ×3 (05:41→17:40)
[2017-08-05 06:53] LABS: ADD MAN DIFF? NO
[2017-08-05 06:56] LABS: WHITE BLOOD COUNT 6.6 10^3/ul (4.8-10.8)
[2017-08-05 06:57] LABS: BASOPHILS % 0.5 % (0.0-2.0); EOSINOPHILS # 0.2 10^3/ul (0.0-0.5); EOSINOPHILS % 2.9 % (0.0-7.0); HEMATOCRIT 33.4 % (42.0-52.0); HEMOGLOBIN 10.8 g/dl (14.0-18.0); LYMPHOCYTES # 1.3 10^3/ul (0.8-2.9); LYMPHOCYTES % 19.8 % (15.0-51.0); MEAN CORPUSCULAR HEMOGLOBIN 27.6 pg (29.0-33.0); MEAN CORPUSCULAR HGB CONC 32.3 g/dl (32.0-37.0); MEAN CORPUSCULAR VOLUME 85.4 fl (82.0-101.0); MEAN PLATELET VOLUME 9.1 fl (7.4-10.4); MONOCYTE # 0.4 10^3/ul (0.3-0.9); MONOCYTES % 5.9 % (0.0-11.0); NEUTROPHIL # 4.6 10^3/ul (1.6-7.5); NEUTROPHILS % 69.8 % (39.0-77.0); PLATELET COUNT 357 10^3/UL (140-415); RED BLOOD COUNT 3.91 10^6/ul (4.70-6.10); RED CELL DISTRIBUTION WIDTH 14.9 % (11.5-14.5)
[2017-08-05 07:25] LABS: ANION GAP 16 (8-16); BLOOD UREA NITROGEN 7 mg/dl (7-20); CALCIUM 9.5 mg/dl (8.4-10.2); CARBON DIOXIDE 27 mmol/L (21-31); CHLORIDE 103 mmol/L (97-110); CREATININE 0.64 mg/dl (0.61-1.24); GLUCOSE 107 mg/dl (70-220); POTASSIUM 3.8 mmol/L (3.5-5.1); SODIUM 142 mmol/L (135-144)
[2017-08-05] MEDS: ALBUTEROL/IPRATROPIUM (NEB) 3 ML AMP HHN ×3 (08:29→19:44)
[2017-08-05] MEDS: ACETAMINOPHEN 650MG/20.3ML CUP PO (08:59)
[2017-08-05] MEDS: NYSTATIN 30 GM POWDER BTL TOP (09:00)
[2017-08-05] MEDS: LEVETIRACETAM 500 MG TAB PO ×2 (09:00→20:43)
[2017-08-05] MEDS: FAMOTIDINE 20 MG TAB PO ×2 (09:00→20:43)
[2017-08-05] MEDS: DIPHENHYDRAMINE 50 MG INJ IV (10:18)
[2017-08-06] MEDS: METOCLOPRAMIDE (1 MG/ML) 10 ML CUP PEG ×4 (06:05→18:06)
[2017-08-06 06:37] LABS: ADD MAN DIFF? NO
[2017-08-06 06:39] LABS: BASOPHILS % 0.4 % (0.0-2.0); EOSINOPHILS # 0.2 10^3/ul (0.0-0.5); EOSINOPHILS % 3.5 % (0.0-7.0); HEMATOCRIT 35.9 % (42.0-52.0); HEMOGLOBIN 11.4 g/dl (14.0-18.0); LYMPHOCYTES # 1.1 10^3/ul (0.8-2.9); LYMPHOCYTES % 20.8 % (15.0-51.0); MEAN CORPUSCULAR HEMOGLOBIN 27.1 pg (29.0-33.0); MEAN CORPUSCULAR HGB CONC 31.8 g/dl (32.0-37.0); MEAN CORPUSCULAR VOLUME 85.5 fl (82.0-101.0); MEAN PLATELET VOLUME 8.9 fl (7.4-10.4); MONOCYTE # 0.4 10^3/ul (0.3-0.9); MONOCYTES % 7.2 % (0.0-11.0); NEUTROPHIL # 3.4 10^3/ul (1.6-7.5); NEUTROPHILS % 66.5 % (39.0-77.0); PLATELET COUNT 366 10^3/UL (140-415); RED CELL DISTRIBUTION WIDTH 14.8 % (11.5-14.5)
[2017-08-06 06:39] LABS: WHITE BLOOD COUNT 5.1 10^3/ul (4.8-10.8)
[2017-08-06 07:32] LABS: ANION GAP 17 (8-16); BLOOD UREA NITROGEN 8 mg/dl (7-20); CALCIUM 9.9 mg/dl (8.4-10.2); CARBON DIOXIDE 29 mmol/L (21-31); CHLORIDE 102 mmol/L (97-110); CREATININE 0.63 mg/dl (0.61-1.24); GLUCOSE 92 mg/dl (70-220); POTASSIUM 3.9 mmol/L (3.5-5.1); SODIUM 144 mmol/L (135-144)
[2017-08-06] MEDS: FAMOTIDINE 20 MG TAB PO ×2 (08:02→21:30)
[2017-08-06] MEDS: LEVETIRACETAM 500 MG TAB PO ×2 (08:02→21:30)
[2017-08-06] MEDS: NYSTATIN 30 GM POWDER BTL TOP (08:02)
[2017-08-06] MEDS: LORAZEPAM 2 MG INJ IV (08:08)
[2017-08-06] MEDS: ALBUTEROL/IPRATROPIUM (NEB) 3 ML AMP HHN ×3 (08:37→20:05)
[2017-08-06] MEDS: morphine 2 MG INJ IV (16:17)
[2017-08-07] MEDS: LORAZEPAM 2 MG INJ IV ×2 (02:42→22:12)
[2017-08-07] MEDS: METOCLOPRAMIDE (1 MG/ML) 10 ML CUP PEG ×4 (02:46→17:07)
[2017-08-07 07:03] LABS: ADD MAN DIFF? NO
[2017-08-07 07:11] LABS: BASOPHILS % 0.3 % (0.0-2.0); EOSINOPHILS # 0.2 10^3/ul (0.0-0.5); HEMATOCRIT 34.6 % (42.0-52.0); LYMPHOCYTES # 1.1 10^3/ul (0.8-2.9); LYMPHOCYTES % 13.2 % (15.0-51.0); MEAN CORPUSCULAR HEMOGLOBIN 27.4 pg (29.0-33.0); MEAN CORPUSCULAR HGB CONC 31.8 g/dl (32.0-37.0); MEAN CORPUSCULAR VOLUME 86.1 fl (82.0-101.0); MEAN PLATELET VOLUME 9.6 fl (7.4-10.4); MONOCYTE # 0.5 10^3/ul (0.3-0.9); MONOCYTES % 5.6 % (0.0-11.0); NEUTROPHIL # 6.7 10^3/ul (1.6-7.5); NEUTROPHILS % 78.1 % (39.0-77.0); PLATELET COUNT 343 10^3/UL (140-415); RED BLOOD COUNT 4.02 10^6/ul (4.70-6.10); RED CELL DISTRIBUTION WIDTH 14.8 % (11.5-14.5)
[2017-08-07 07:11] LABS: WHITE BLOOD COUNT 8.6 10^3/ul (4.8-10.8)
[2017-08-07] MEDS: ALBUTEROL/IPRATROPIUM (NEB) 3 ML AMP HHN ×3 (07:55→19:42)
[2017-08-07 07:57] LABS: ANION GAP 16 (8-16); BLOOD UREA NITROGEN 10 mg/dl (7-20); CALCIUM 9.2 mg/dl (8.4-10.2); CARBON DIOXIDE 27 mmol/L (21-31); CHLORIDE 103 mmol/L (97-110); CREATININE 0.63 mg/dl (0.61-1.24); GLUCOSE 111 mg/dl (70-220); POTASSIUM 3.8 mmol/L (3.5-5.1); SODIUM 142 mmol/L (135-144)
[2017-08-07] MEDS: LEVETIRACETAM 500 MG TAB PO ×2 (08:39→20:05)
[2017-08-07] MEDS: FAMOTIDINE 20 MG TAB PO ×2 (08:39→22:12)
[2017-08-07] MEDS: NYSTATIN 30 GM POWDER BTL TOP (08:41)
[2017-08-07] MEDS: ACETAMINOPHEN 650MG/20.3ML CUP PO (09:55)
[2017-08-07] MEDS: DIPHENHYDRAMINE 50 MG INJ IV (09:56)
[2017-08-07] MEDS: morphine 2 MG INJ IV ×2 (11:55→20:06)
[2017-08-07] MEDS: LEVETIRACETAM (100 MG/ML) 5ML CUP PO (22:11)
[2017-08-08] MEDS: METOCLOPRAMIDE (1 MG/ML) 10 ML CUP PEG ×4 (04:00→17:12)
[2017-08-08] MEDS: morphine 2 MG INJ IV ×2 (05:15→19:54)
[2017-08-08] MEDS: ALBUTEROL/IPRATROPIUM (NEB) 3 ML AMP HHN ×3 (08:20→20:26)
[2017-08-08] MEDS: NYSTATIN 30 GM POWDER BTL TOP (08:37)
[2017-08-08] MEDS: FAMOTIDINE 20 MG TAB PO ×2 (08:37→19:55)
[2017-08-08] MEDS: LEVETIRACETAM (100 MG/ML) 5ML CUP PO ×2 (08:37→19:54)
[2017-08-08 08:57] LABS: ADD MAN DIFF? NO
[2017-08-08 09:14] LABS: BASOPHILS % 0.4 % (0.0-2.0); EOSINOPHILS # 0.1 10^3/ul (0.0-0.5); EOSINOPHILS % 2.3 % (0.0-7.0); HEMATOCRIT 31.8 % (42.0-52.0); HEMOGLOBIN 10.1 g/dl (14.0-18.0); LYMPHOCYTES # 1.1 10^3/ul (0.8-2.9); LYMPHOCYTES % 20.6 % (15.0-51.0); MEAN CORPUSCULAR HEMOGLOBIN 27.6 pg (29.0-33.0); MEAN CORPUSCULAR HGB CONC 31.8 g/dl (32.0-37.0); MEAN CORPUSCULAR VOLUME 86.9 fl (82.0-101.0); MEAN PLATELET VOLUME 9.9 fl (7.4-10.4); MONOCYTE # 0.4 10^3/ul (0.3-0.9); MONOCYTES % 6.3 % (0.0-11.0); NEUTROPHIL # 3.9 10^3/ul (1.6-7.5); NEUTROPHILS % 69.9 % (39.0-77.0); PLATELET COUNT 296 10^3/UL (140-415); RED BLOOD COUNT 3.66 10^6/ul (4.70-6.10); RED CELL DISTRIBUTION WIDTH 15.2 % (11.5-14.5)
[2017-08-08 09:14] LABS: WHITE BLOOD COUNT 5.5 10^3/ul (4.8-10.8)
[2017-08-08 09:28] LABS: ANION GAP 15 (8-16); BLOOD UREA NITROGEN 10 mg/dl (7-20); CALCIUM 9.1 mg/dl (8.4-10.2); CARBON DIOXIDE 29 mmol/L (21-31); CHLORIDE 101 mmol/L (97-110); CREATININE 0.61 mg/dl (0.61-1.24); GLUCOSE 96 mg/dl (70-220); POTASSIUM 3.6 mmol/L (3.5-5.1); SODIUM 141 mmol/L (135-144)
[2017-08-08] MEDS: HYDROCODONE/APAP (5/325) TAB PO (11:37)
[2017-08-08] MEDS: DIPHENHYDRAMINE 50 MG INJ IV ×2 (11:37→19:55)
[2017-08-09] MEDS: METOCLOPRAMIDE (1 MG/ML) 10 ML CUP PEG ×5 (00:53→23:50)
[2017-08-09] MEDS: LORAZEPAM 2 MG INJ IV ×2 (00:54→23:50)
[2017-08-09 07:01] LABS: ADD MAN DIFF? NO
[2017-08-09 07:07] LABS: BASOPHILS % 0.4 % (0.0-2.0); EOSINOPHILS # 0.2 10^3/ul (0.0-0.5); EOSINOPHILS % 3.5 % (0.0-7.0); HEMATOCRIT 32.3 % (42.0-52.0); HEMOGLOBIN 10.3 g/dl (14.0-18.0); LYMPHOCYTES # 1.2 10^3/ul (0.8-2.9); LYMPHOCYTES % 25.9 % (15.0-51.0); MEAN CORPUSCULAR HEMOGLOBIN 27.2 pg (29.0-33.0); MEAN CORPUSCULAR HGB CONC 31.9 g/dl (32.0-37.0); MEAN CORPUSCULAR VOLUME 85.4 fl (82.0-101.0); MEAN PLATELET VOLUME 9.5 fl (7.4-10.4); MONOCYTE # 0.3 10^3/ul (0.3-0.9); MONOCYTES % 7.3 % (0.0-11.0); NEUTROPHIL # 2.9 10^3/ul (1.6-7.5); PLATELET COUNT 286 10^3/UL (140-415); RED BLOOD COUNT 3.78 10^6/ul (4.70-6.10); RED CELL DISTRIBUTION WIDTH 14.6 % (11.5-14.5)
[2017-08-09 07:07] LABS: WHITE BLOOD COUNT 4.6 10^3/ul (4.8-10.8)
[2017-08-09 07:52] LABS: ANION GAP 19 (8-16); BLOOD UREA NITROGEN 10 mg/dl (7-20); CALCIUM 8.6 mg/dl (8.4-10.2); CARBON DIOXIDE 28 mmol/L (21-31); CHLORIDE 101 mmol/L (97-110); GLUCOSE 94 mg/dl (70-220); POTASSIUM 3.9 mmol/L (3.5-5.1); SODIUM 144 mmol/L (135-144)
[2017-08-09] MEDS: morphine 2 MG INJ IV ×3 (08:50→21:01)
[2017-08-09] MEDS: ALBUTEROL/IPRATROPIUM (NEB) 3 ML AMP HHN ×3 (08:56→20:10)
[2017-08-09] MEDS: FAMOTIDINE 20 MG TAB PO ×2 (09:41→21:01)
[2017-08-09] MEDS: NYSTATIN 30 GM POWDER BTL TOP (09:41)
[2017-08-09] MEDS: LEVETIRACETAM (100 MG/ML) 5ML CUP PO ×2 (09:41→21:01)
[2017-08-09] MEDS: HYDROCODONE/APAP (5/325) TAB PO ×2 (16:47→22:28)
[2017-08-10] MEDS: DIPHENHYDRAMINE 50 MG INJ IV ×3 (00:36→22:38)
[2017-08-10] MEDS: METOCLOPRAMIDE (1 MG/ML) 10 ML CUP PEG ×3 (06:32→17:46)
[2017-08-10 07:52] LABS: ADD MAN DIFF? NO
[2017-08-10 07:57] LABS: BASOPHILS % 0.2 % (0.0-2.0); EOSINOPHILS # 0.1 10^3/ul (0.0-0.5); EOSINOPHILS % 3.2 % (0.0-7.0); HEMATOCRIT 31.7 % (42.0-52.0); HEMOGLOBIN 10.2 g/dl (14.0-18.0); LYMPHOCYTES # 1.1 10^3/ul (0.8-2.9); LYMPHOCYTES % 27.6 % (15.0-51.0); MEAN CORPUSCULAR HEMOGLOBIN 27.6 pg (29.0-33.0); MEAN CORPUSCULAR HGB CONC 32.2 g/dl (32.0-37.0); MEAN CORPUSCULAR VOLUME 85.7 fl (82.0-101.0); MEAN PLATELET VOLUME 9.7 fl (7.4-10.4); MONOCYTE # 0.3 10^3/ul (0.3-0.9); MONOCYTES % 7.2 % (0.0-11.0); NEUTROPHIL # 2.4 10^3/ul (1.6-7.5); NEUTROPHILS % 60.8 % (39.0-77.0); PLATELET COUNT 262 10^3/UL (140-415); RED CELL DISTRIBUTION WIDTH 14.6 % (11.5-14.5)
[2017-08-10] MEDS: ALBUTEROL/IPRATROPIUM (NEB) 3 ML AMP HHN ×3 (08:19→20:20)
[2017-08-10 08:21] LABS: ANION GAP 17 (8-16); BLOOD UREA NITROGEN 11 mg/dl (7-20); CALCIUM 8.8 mg/dl (8.4-10.2); CARBON DIOXIDE 28 mmol/L (21-31); CHLORIDE 102 mmol/L (97-110); CREATININE 0.62 mg/dl (0.61-1.24); GLUCOSE 92 mg/dl (70-220); POTASSIUM 3.9 mmol/L (3.5-5.1); SODIUM 143 mmol/L (135-144)
[2017-08-10] MEDS: FAMOTIDINE 20 MG TAB PO ×2 (08:38→20:54)
[2017-08-10] MEDS: LEVETIRACETAM (100 MG/ML) 5ML CUP PO ×2 (08:38→20:54)
[2017-08-10] MEDS: NYSTATIN 30 GM POWDER BTL TOP (08:39)
[2017-08-10] MEDS: HYDROCODONE/APAP (5/325) TAB PO ×2 (08:50→20:55)
[2017-08-10] MEDS: morphine 2 MG INJ IV ×3 (11:44→20:55)
[2017-08-10] MEDS: LORAZEPAM 2 MG INJ IV (22:38)
[2017-08-11] MEDS: METOCLOPRAMIDE (1 MG/ML) 10 ML CUP PEG ×4 (00:19→18:03)
[2017-08-11] MEDS: DIPHENHYDRAMINE 50 MG INJ IV ×2 (03:52→21:02)
[2017-08-11] MEDS: morphine 2 MG INJ IV ×5 (03:53→18:03)
[2017-08-11] MEDS: ALBUTEROL/IPRATROPIUM (NEB) 3 ML AMP HHN ×4 (08:00→20:01)
[2017-08-11 08:15] LABS: ADD MAN DIFF? NO
[2017-08-11 08:24] LABS: BASOPHILS % 0.5 % (0.0-2.0); EOSINOPHILS # 0.1 10^3/ul (0.0-0.5); EOSINOPHILS % 2.7 % (0.0-7.0); HEMATOCRIT 32.8 % (42.0-52.0); HEMOGLOBIN 10.3 g/dl (14.0-18.0); LYMPHOCYTES # 1.2 10^3/ul (0.8-2.9); LYMPHOCYTES % 27.4 % (15.0-51.0); MEAN CORPUSCULAR HEMOGLOBIN 27.1 pg (29.0-33.0); MEAN CORPUSCULAR HGB CONC 31.4 g/dl (32.0-37.0); MEAN CORPUSCULAR VOLUME 86.3 fl (82.0-101.0); MEAN PLATELET VOLUME 9.6 fl (7.4-10.4); MONOCYTE # 0.3 10^3/ul (0.3-0.9); MONOCYTES % 7.5 % (0.0-11.0); NEUTROPHIL # 2.7 10^3/ul (1.6-7.5); NEUTROPHILS % 61.7 % (39.0-77.0); PLATELET COUNT 251 10^3/UL (140-415); RED CELL DISTRIBUTION WIDTH 14.4 % (11.5-14.5)
[2017-08-11 08:24] LABS: WHITE BLOOD COUNT 4.4 10^3/ul (4.8-10.8)
[2017-08-11 09:02] LABS: ANION GAP 16 (8-16); BLOOD UREA NITROGEN 10 mg/dl (7-20); CALCIUM 8.9 mg/dl (8.4-10.2); CARBON DIOXIDE 29 mmol/L (21-31); CHLORIDE 102 mmol/L (97-110); CREATININE 0.63 mg/dl (0.61-1.24); GLUCOSE 88 mg/dl (70-220); POTASSIUM 3.8 mmol/L (3.5-5.1); SODIUM 143 mmol/L (135-144)
[2017-08-11] MEDS: LEVETIRACETAM (100 MG/ML) 5ML CUP PO ×2 (09:32→21:01)
[2017-08-11] MEDS: FAMOTIDINE 20 MG TAB PO ×2 (09:32→21:02)
[2017-08-11] MEDS: NYSTATIN 30 GM POWDER BTL TOP (09:37)
[2017-08-11] MEDS: HYDROCODONE/APAP (5/325) TAB PO (21:10)
[2017-08-12] MEDS: METOCLOPRAMIDE (1 MG/ML) 10 ML CUP PEG ×5 (00:45→23:52)
[2017-08-12] MEDS: morphine 2 MG INJ IV ×4 (02:01→20:26)
[2017-08-12] MEDS: FAMOTIDINE 20 MG TAB PO ×2 (08:16→20:10)
[2017-08-12] MEDS: LEVETIRACETAM (100 MG/ML) 5ML CUP PO ×2 (08:16→20:10)
[2017-08-12] MEDS: HYDROCODONE/APAP (5/325) TAB PO (08:19)
[2017-08-12] MEDS: ALBUTEROL/IPRATROPIUM (NEB) 3 ML AMP HHN ×3 (08:22→19:26)
[2017-08-12] MEDS: NYSTATIN 30 GM POWDER BTL TOP (12:15)
[2017-08-12] MEDS: LORAZEPAM 2 MG INJ IV ×3 (12:15→22:03)
[2017-08-12] MEDS: NA PHOSPHATE/BIPHOS 133 ML ENEMA PR (17:00)
[2017-08-12] MEDS: SOD CHLORIDE 0.9% 500 ML IV ×2 (17:23→21:15)
[2017-08-12] MEDS: ACETAMINOPHEN 650MG/20.3ML CUP PO (17:46)
[2017-08-12] MEDS: SOD CHLORIDE 0.9% 1,000 ML IV (19:14)
[2017-08-13] MEDS: morphine 2 MG INJ IV ×5 (01:57→21:08)
[2017-08-13] MEDS: DIPHENHYDRAMINE 50 MG INJ IV ×2 (03:52→22:21)
[2017-08-13] MEDS: METOCLOPRAMIDE (1 MG/ML) 10 ML CUP PEG ×4 (05:48→17:26)
[2017-08-13] MEDS: HYDROCODONE/APAP (5/325) TAB PO (05:49)
[2017-08-13 06:53] LABS: ADD MAN DIFF? NO
[2017-08-13 07:01] LABS: WHITE BLOOD COUNT 12.7 10^3/ul (4.8-10.8)
[2017-08-13 07:01] LABS: BASOPHILS % 0.2 % (0.0-2.0); EOSINOPHILS # 0.1 10^3/ul (0.0-0.5); EOSINOPHILS % 0.6 % (0.0-7.0); HEMATOCRIT 32.7 % (42.0-52.0); HEMOGLOBIN 10.4 g/dl (14.0-18.0); LYMPHOCYTES # 1.3 10^3/ul (0.8-2.9); LYMPHOCYTES % 10.5 % (15.0-51.0); MEAN CORPUSCULAR HEMOGLOBIN 27.2 pg (29.0-33.0); MEAN CORPUSCULAR HGB CONC 31.8 g/dl (32.0-37.0); MEAN CORPUSCULAR VOLUME 85.4 fl (82.0-101.0); MEAN PLATELET VOLUME 10.3 fl (7.4-10.4); MONOCYTE # 0.6 10^3/ul (0.3-0.9); MONOCYTES % 4.4 % (0.0-11.0); NEUTROPHIL # 10.6 10^3/ul (1.6-7.5); NEUTROPHILS % 83.8 % (39.0-77.0); PLATELET COUNT 228 10^3/UL (140-415); RED BLOOD COUNT 3.83 10^6/ul (4.70-6.10); RED CELL DISTRIBUTION WIDTH 14.5 % (11.5-14.5)
[2017-08-13 07:32] LABS: LACTIC ACID 0.7 mmol/L (0.5-2.0)
[2017-08-13 07:45] LABS: ANION GAP 16 (8-16); BLOOD UREA NITROGEN 7 mg/dl (7-20); CALCIUM 8.7 mg/dl (8.4-10.2); CARBON DIOXIDE 27 mmol/L (21-31); CHLORIDE 104 mmol/L (97-110); CREATININE 0.55 mg/dl (0.61-1.24); GLUCOSE 107 mg/dl (70-220); POTASSIUM 3.8 mmol/L (3.5-5.1); SODIUM 143 mmol/L (135-144)
[2017-08-13] MEDS: FAMOTIDINE 20 MG TAB PO ×2 (07:55→21:07)
[2017-08-13] MEDS: LEVETIRACETAM (100 MG/ML) 5ML CUP PO ×2 (07:55→21:07)
[2017-08-13] MEDS: NYSTATIN 30 GM POWDER BTL TOP (07:55)
[2017-08-13] MEDS: ALBUTEROL/IPRATROPIUM (NEB) 3 ML AMP HHN ×3 (08:07→19:56)
[2017-08-14] MEDS: METOCLOPRAMIDE (1 MG/ML) 10 ML CUP PEG ×4 (00:55→17:44)
[2017-08-14] MEDS: ALBUTEROL/IPRATROPIUM (NEB) 3 ML AMP HHN ×3 (08:17→20:45)
[2017-08-14] MEDS: NYSTATIN 30 GM POWDER BTL TOP (08:40)
[2017-08-14] MEDS: FAMOTIDINE 20 MG TAB PO ×2 (08:40→21:54)
[2017-08-14] MEDS: LEVETIRACETAM (100 MG/ML) 5ML CUP PO ×2 (08:40→21:52)
[2017-08-14] MEDS: morphine 2 MG INJ IV (12:25)
[2017-08-14] MEDS: HYDROCODONE/APAP (5/325) TAB PO (14:21)
[2017-08-14] MEDS: DIPHENHYDRAMINE 50 MG INJ IV (21:52)
[2017-08-15] MEDS: METOCLOPRAMIDE (1 MG/ML) 10 ML CUP PEG ×4 (01:03→17:16)
[2017-08-15 07:27] LABS: ADD MAN DIFF? NO
[2017-08-15 07:34] LABS: BASOPHILS % 0.3 % (0.0-2.0); EOSINOPHILS % 0.1 % (0.0-7.0); HEMATOCRIT 36.9 % (42.0-52.0); LYMPHOCYTES # 1.1 10^3/ul (0.8-2.9); LYMPHOCYTES % 7.4 % (15.0-51.0); MEAN CORPUSCULAR HEMOGLOBIN 27.3 pg (29.0-33.0); MEAN CORPUSCULAR HGB CONC 32.5 g/dl (32.0-37.0); MEAN CORPUSCULAR VOLUME 84.1 fl (82.0-101.0); MEAN PLATELET VOLUME 10.1 fl (7.4-10.4); MONOCYTE # 0.8 10^3/ul (0.3-0.9); MONOCYTES % 5.8 % (0.0-11.0); NEUTROPHIL # 12.2 10^3/ul (1.6-7.5); NEUTROPHILS % 85.8 % (39.0-77.0); PLATELET COUNT 246 10^3/UL (140-415); RED BLOOD COUNT 4.39 10^6/ul (4.70-6.10); RED CELL DISTRIBUTION WIDTH 14.6 % (11.5-14.5)
[2017-08-15 07:34] LABS: WHITE BLOOD COUNT 14.2 10^3/ul (4.8-10.8)
[2017-08-15 08:07] LABS: ANION GAP 18 (8-16); BLOOD UREA NITROGEN 6 mg/dl (7-20); CALCIUM 9.4 mg/dl (8.4-10.2); CARBON DIOXIDE 25 mmol/L (21-31); CHLORIDE 100 mmol/L (97-110); CREATININE 0.56 mg/dl (0.61-1.24); GLUCOSE 137 mg/dl (70-220); SODIUM 139 mmol/L (135-144)
[2017-08-15] MEDS: ALBUTEROL/IPRATROPIUM (NEB) 3 ML AMP HHN ×3 (08:26→20:07)
[2017-08-15] MEDS: ACETAMINOPHEN 650MG/20.3ML CUP PO ×2 (08:51→17:16)
[2017-08-15] MEDS: LEVETIRACETAM (100 MG/ML) 5ML CUP PO ×2 (08:51→20:55)
[2017-08-15] MEDS: FAMOTIDINE 20 MG TAB PO ×2 (08:51→20:55)
[2017-08-15] MEDS: NYSTATIN 30 GM POWDER BTL TOP (11:18)
[2017-08-15] MEDS: SOD CHLORIDE 0.45% 1,000 ML IV ×3 (11:19→23:50)
[2017-08-15] MEDS: LEVOFLOXACIN 500 MG TAB PO (14:48)
[2017-08-15] MEDS: morphine 2 MG INJ IV (20:55)
[2017-08-15] MEDS: DIPHENHYDRAMINE 50 MG INJ IV (23:40)
[2017-08-15] MEDS: HYDROCODONE/APAP (5/325) TAB PO (23:40)
[2017-08-16] MEDS: METOCLOPRAMIDE (1 MG/ML) 10 ML CUP PEG ×4 (00:27→18:10)
[2017-08-16] MEDS: LEVOFLOXACIN 500 MG TAB PO (05:56)
[2017-08-16] MEDS: SOD CHLORIDE 0.45% 1,000 ML IV ×3 (06:30→18:17)
[2017-08-16] MEDS: ALBUTEROL/IPRATROPIUM (NEB) 3 ML AMP HHN ×3 (08:53→19:49)
[2017-08-16 08:54] LABS: ADD MAN DIFF? NO
[2017-08-16 09:01] LABS: BASOPHILS % 0.2 % (0.0-2.0); EOSINOPHILS % 0.3 % (0.0-7.0); HEMATOCRIT 31.4 % (42.0-52.0); HEMOGLOBIN 10.1 g/dl (14.0-18.0); LYMPHOCYTES # 1.1 10^3/ul (0.8-2.9); LYMPHOCYTES % 8.9 % (15.0-51.0); MEAN CORPUSCULAR HEMOGLOBIN 27.2 pg (29.0-33.0); MEAN CORPUSCULAR HGB CONC 32.2 g/dl (32.0-37.0); MEAN CORPUSCULAR VOLUME 84.4 fl (82.0-101.0); MEAN PLATELET VOLUME 10.2 fl (7.4-10.4); MONOCYTE # 0.8 10^3/ul (0.3-0.9); MONOCYTES % 6.7 % (0.0-11.0); NEUTROPHILS % 83.6 % (39.0-77.0); PLATELET COUNT 189 10^3/UL (140-415); POSITIVE DIFF @See below; RED BLOOD COUNT 3.72 10^6/ul (4.70-6.10); RED CELL DISTRIBUTION WIDTH 14.2 % (11.5-14.5)
[2017-08-16] MEDS: FAMOTIDINE 20 MG TAB PO ×2 (09:08→20:42)
[2017-08-16] MEDS: ACETAMINOPHEN 650MG/20.3ML CUP PO (09:08)
[2017-08-16] MEDS: NYSTATIN 30 GM POWDER BTL TOP (09:08)
[2017-08-16] MEDS: LEVETIRACETAM (100 MG/ML) 5ML CUP PO ×2 (09:09→20:42)
[2017-08-16 09:24] LABS: ANION GAP 13 (8-16); BLOOD UREA NITROGEN 5 mg/dl (7-20); CALCIUM 8.9 mg/dl (8.4-10.2); CARBON DIOXIDE 27 mmol/L (21-31); CHLORIDE 101 mmol/L (97-110); CREATININE 0.51 mg/dl (0.61-1.24); GLUCOSE 109 mg/dl (70-220); POTASSIUM 3.5 mmol/L (3.5-5.1); SODIUM 137 mmol/L (135-144)
[2017-08-16] MEDS: DIPHENHYDRAMINE 50 MG INJ IV (14:02)
[2017-08-17] MEDS: ACETAMINOPHEN 650MG/20.3ML CUP PO ×3 (00:03→16:41)
[2017-08-17] MEDS: METOCLOPRAMIDE (1 MG/ML) 10 ML CUP PEG ×5 (00:06→23:18)
[2017-08-17] MEDS: HYDROCODONE/APAP (5/325) TAB PO ×2 (05:38→13:50)
[2017-08-17] MEDS: LEVOFLOXACIN 500 MG TAB PO (05:38)
[2017-08-17] MEDS: LORAZEPAM 2 MG INJ IV ×2 (06:19→18:07)
[2017-08-17 07:15] LABS: ADD MAN DIFF? NO
[2017-08-17 07:22] LABS: BASOPHILS % 0.3 % (0.0-2.0); EOSINOPHILS # 0.1 10^3/ul (0.0-0.5); EOSINOPHILS % 1.3 % (0.0-7.0); HEMATOCRIT 31.1 % (42.0-52.0); LYMPHOCYTES # 0.7 10^3/ul (0.8-2.9); LYMPHOCYTES % 11.1 % (15.0-51.0); MEAN CORPUSCULAR HGB CONC 32.2 g/dl (32.0-37.0); MEAN CORPUSCULAR VOLUME 83.8 fl (82.0-101.0); MONOCYTE # 0.5 10^3/ul (0.3-0.9); MONOCYTES % 8.4 % (0.0-11.0); NEUTROPHIL # 4.6 10^3/ul (1.6-7.5); NEUTROPHILS % 77.9 % (39.0-77.0); PLATELET COUNT 206 10^3/UL (140-415); RED BLOOD COUNT 3.71 10^6/ul (4.70-6.10)
[2017-08-17] MEDS: SOD CHLORIDE 0.45% 1,000 ML IV (07:31)
[2017-08-17 07:50] LABS: ANION GAP 13 (8-16); BLOOD UREA NITROGEN 5 mg/dl (7-20); CALCIUM 9.4 mg/dl (8.4-10.2); CARBON DIOXIDE 29 mmol/L (21-31); CHLORIDE 101 mmol/L (97-110); CREATININE 0.53 mg/dl (0.61-1.24); GLUCOSE 110 mg/dl (70-220); POTASSIUM 3.5 mmol/L (3.5-5.1); SODIUM 139 mmol/L (135-144)
[2017-08-17] MEDS: ALBUTEROL/IPRATROPIUM (NEB) 3 ML AMP HHN ×3 (08:37→20:31)
[2017-08-17] MEDS: NYSTATIN 30 GM POWDER BTL TOP (09:00)
[2017-08-17] MEDS: LEVETIRACETAM (100 MG/ML) 5ML CUP PO ×2 (10:05→20:12)
[2017-08-17] MEDS: FAMOTIDINE 20 MG TAB PO ×2 (10:05→20:12)
[2017-08-18] MEDS: LORAZEPAM 2 MG INJ IV ×2 (00:49→16:21)
[2017-08-18] MEDS: METOCLOPRAMIDE (1 MG/ML) 10 ML CUP PEG ×4 (05:40→23:52)
[2017-08-18] MEDS: LEVOFLOXACIN 500 MG TAB PO (05:41)
[2017-08-18] MEDS: SOD CHLORIDE 0.45% 1,000 ML IV ×2 (05:41→18:42)
[2017-08-18] MEDS: ALBUTEROL/IPRATROPIUM (NEB) 3 ML AMP HHN ×3 (08:36→20:44)
[2017-08-18 08:45] LABS: ADD MAN DIFF? NO
[2017-08-18 08:48] LABS: WHITE BLOOD COUNT 4.5 10^3/ul (4.8-10.8)
[2017-08-18 08:48] LABS: BASOPHILS % 0.2 % (0.0-2.0); EOSINOPHILS % 0.9 % (0.0-7.0); HEMATOCRIT 30.6 % (42.0-52.0); LYMPHOCYTES # 0.9 10^3/ul (0.8-2.9); LYMPHOCYTES % 20.2 % (15.0-51.0); MEAN CORPUSCULAR HEMOGLOBIN 26.9 pg (29.0-33.0); MEAN CORPUSCULAR HGB CONC 32.7 g/dl (32.0-37.0); MEAN CORPUSCULAR VOLUME 82.3 fl (82.0-101.0); MEAN PLATELET VOLUME 9.6 fl (7.4-10.4); MONOCYTE # 0.5 10^3/ul (0.3-0.9); MONOCYTES % 10.9 % (0.0-11.0); NEUTROPHILS % 65.8 % (39.0-77.0); PLATELET COUNT 226 10^3/UL (140-415); RED BLOOD COUNT 3.72 10^6/ul (4.70-6.10); RED CELL DISTRIBUTION WIDTH 14.1 % (11.5-14.5)
[2017-08-18 09:10] LABS: ANION GAP 17 (8-16); BLOOD UREA NITROGEN 4 mg/dl (7-20); CALCIUM 9.3 mg/dl (8.4-10.2); CARBON DIOXIDE 26 mmol/L (21-31); CHLORIDE 102 mmol/L (97-110); CREATININE 0.58 mg/dl (0.61-1.24); GLUCOSE 102 mg/dl (70-220); POTASSIUM 3.9 mmol/L (3.5-5.1); SODIUM 141 mmol/L (135-144)
[2017-08-18] MEDS: NYSTATIN 30 GM POWDER BTL TOP (09:59)
[2017-08-18] MEDS: FAMOTIDINE 20 MG TAB PO ×2 (09:59→21:30)
[2017-08-18] MEDS: HYDROCODONE/APAP (5/325) TAB PO (09:59)
[2017-08-18] MEDS: LEVETIRACETAM (100 MG/ML) 5ML CUP PO ×2 (09:59→21:29)
[2017-08-18] MEDS: METOPROLOL 25 MG TAB GTB ×2 (13:41→23:53)
[2017-08-18] MEDS: ACETAMINOPHEN 650MG/20.3ML CUP PO (15:43)
[2017-08-18] MEDS: morphine 2 MG INJ IV (21:26)
[2017-08-19] MEDS: LEVOFLOXACIN 500 MG TAB PO (06:16)
[2017-08-19] MEDS: METOCLOPRAMIDE (1 MG/ML) 10 ML CUP PEG ×4 (06:17→22:16)
[2017-08-19 07:05] LABS: ADD MAN DIFF? NO
[2017-08-19] MEDS: SOD CHLORIDE 0.45% 1,000 ML IV ×2 (07:06→22:23)
[2017-08-19 07:12] LABS: BASOPHILS % 0.8 % (0.0-2.0); EOSINOPHILS # 0.1 10^3/ul (0.0-0.5); EOSINOPHILS % 1.6 % (0.0-7.0); HEMATOCRIT 30.7 % (42.0-52.0); HEMOGLOBIN 9.8 g/dl (14.0-18.0); LYMPHOCYTES % 27.4 % (15.0-51.0); MEAN CORPUSCULAR HEMOGLOBIN 26.7 pg (29.0-33.0); MEAN CORPUSCULAR HGB CONC 31.9 g/dl (32.0-37.0); MEAN CORPUSCULAR VOLUME 83.7 fl (82.0-101.0); MEAN PLATELET VOLUME 9.6 fl (7.4-10.4); MONOCYTE # 0.6 10^3/ul (0.3-0.9); MONOCYTES % 14.9 % (0.0-11.0); NEUTROPHIL # 1.9 10^3/ul (1.6-7.5); NEUTROPHILS % 50.7 % (39.0-77.0); PLATELET COUNT 230 10^3/UL (140-415); RED BLOOD COUNT 3.67 10^6/ul (4.70-6.10); RED CELL DISTRIBUTION WIDTH 13.9 % (11.5-14.5)
[2017-08-19 07:12] LABS: WHITE BLOOD COUNT 3.7 10^3/ul (4.8-10.8)
[2017-08-19] MEDS: ALBUTEROL/IPRATROPIUM (NEB) 3 ML AMP HHN ×3 (08:00→20:37)
[2017-08-19] MEDS: LEVETIRACETAM (100 MG/ML) 5ML CUP PO ×2 (08:12→21:06)
[2017-08-19] MEDS: NYSTATIN 30 GM POWDER BTL TOP (08:13)
[2017-08-19] MEDS: METOPROLOL 25 MG TAB GTB ×2 (08:13→21:07)
[2017-08-19] MEDS: FAMOTIDINE 20 MG TAB PO ×2 (08:13→21:07)
[2017-08-19] MEDS: ONDANSETRON 4 MG INJ IV ×2 (14:17→22:23)
[2017-08-19] MEDS: LORAZEPAM 2 MG INJ IV (16:47)
[2017-08-19] MEDS: ACETAMINOPHEN 650MG/20.3ML CUP PO (22:16)
[2017-08-20] MEDS: METOCLOPRAMIDE (1 MG/ML) 10 ML CUP PEG ×4 (06:23→23:46)
[2017-08-20] MEDS: LEVOFLOXACIN 500 MG TAB PO (06:23)
[2017-08-20] MEDS: ALBUTEROL/IPRATROPIUM (NEB) 3 ML AMP HHN ×3 (08:10→19:33)
[2017-08-20] MEDS: LEVETIRACETAM (100 MG/ML) 5ML CUP PO ×2 (08:58→20:55)
[2017-08-20] MEDS: FAMOTIDINE 20 MG TAB PO ×2 (08:58→20:56)
[2017-08-20] MEDS: HYDROCODONE/APAP (5/325) TAB PO (08:58)
[2017-08-20] MEDS: METOPROLOL 25 MG TAB GTB ×2 (08:59→20:55)
[2017-08-20] MEDS: NYSTATIN 30 GM POWDER BTL TOP (08:59)
[2017-08-20] MEDS: SOD CHLORIDE 0.45% 1,000 ML IV (11:38)
[2017-08-20 11:39] LABS: ADD MAN DIFF? NO
[2017-08-20 11:44] LABS: ABNORMAL IP MESSAGE 1; BASOPHILS % 0.4 % (0.0-2.0); EOSINOPHILS # 0.1 10^3/ul (0.0-0.5); EOSINOPHILS % 1.6 % (0.0-7.0); HEMATOCRIT 32.3 % (42.0-52.0); HEMOGLOBIN 10.7 g/dl (14.0-18.0); LYMPHOCYTES # 1.3 10^3/ul (0.8-2.9); LYMPHOCYTES % 26.2 % (15.0-51.0); MEAN CORPUSCULAR HEMOGLOBIN 27.2 pg (29.0-33.0); MEAN CORPUSCULAR HGB CONC 33.1 g/dl (32.0-37.0); MEAN PLATELET VOLUME 9.2 fl (7.4-10.4); MONOCYTE # 0.4 10^3/ul (0.3-0.9); MONOCYTES % 8.7 % (0.0-11.0); NEUTROPHIL # 2.9 10^3/ul (1.6-7.5); NEUTROPHILS % 57.4 % (39.0-77.0); PLATELET COUNT 257 10^3/UL (140-415); POSITIVE DIFF @See below; RED BLOOD COUNT 3.94 10^6/ul (4.70-6.10); RED CELL DISTRIBUTION WIDTH 14.1 % (11.5-14.5)
[2017-08-20 11:44] LABS: WHITE BLOOD COUNT 5.1 10^3/ul (4.8-10.8)
[2017-08-20 11:58] LABS: ANION GAP 15 (8-16); BLOOD UREA NITROGEN 3 mg/dl (7-20); CALCIUM 9.2 mg/dl (8.4-10.2); CARBON DIOXIDE 25 mmol/L (21-31); CHLORIDE 106 mmol/L (97-110); CREATININE 0.58 mg/dl (0.61-1.24); GLUCOSE 98 mg/dl (70-220); SODIUM 142 mmol/L (135-144)
[2017-08-20] MEDS: ACETAMINOPHEN 650MG/20.3ML CUP PO (14:06)
[2017-08-20] MEDS: ONDANSETRON 4 MG INJ IV (15:53)
[2017-08-20] MEDS: DIPHENHYDRAMINE 50 MG INJ IV (17:23)
[2017-08-20] MEDS: LORAZEPAM 2 MG INJ IV (23:46)
[2017-08-21] MEDS: SOD CHLORIDE 0.45% 1,000 ML IV ×2 (02:00→15:48)
[2017-08-21] MEDS: LEVOFLOXACIN 500 MG TAB PO (06:25)
[2017-08-21] MEDS: METOCLOPRAMIDE (1 MG/ML) 10 ML CUP PEG ×3 (06:25→17:51)
[2017-08-21] MEDS: ALBUTEROL/IPRATROPIUM (NEB) 3 ML AMP HHN ×3 (08:25→21:17)
[2017-08-21] MEDS: LEVETIRACETAM (100 MG/ML) 5ML CUP PO ×2 (08:37→21:05)
[2017-08-21] MEDS: FAMOTIDINE 20 MG TAB PO ×2 (08:38→21:06)
[2017-08-21] MEDS: METOPROLOL 25 MG TAB GTB ×2 (08:38→21:06)
[2017-08-21] MEDS: NYSTATIN 30 GM POWDER BTL TOP (08:39)
[2017-08-21] MEDS: HYDROCODONE/APAP (5/325) TAB PO (10:05)
[2017-08-21] MEDS: LORAZEPAM 2 MG INJ IV (22:24)
[2017-08-22] MEDS: LEVOFLOXACIN 500 MG TAB PO (05:28)
[2017-08-22] MEDS: METOCLOPRAMIDE (1 MG/ML) 10 ML CUP PEG ×4 (05:28→17:41)
[2017-08-22] MEDS: SOD CHLORIDE 0.45% 1,000 ML IV ×2 (06:36→20:54)
[2017-08-22] MEDS: ALBUTEROL/IPRATROPIUM (NEB) 3 ML AMP HHN ×3 (08:07→20:43)
[2017-08-22] MEDS: LEVETIRACETAM (100 MG/ML) 5ML CUP PO ×2 (08:30→21:07)
[2017-08-22] MEDS: METOPROLOL 25 MG TAB GTB ×2 (08:30→21:09)
[2017-08-22] MEDS: NYSTATIN 30 GM POWDER BTL TOP (08:30)
[2017-08-22] MEDS: FAMOTIDINE 20 MG TAB PO ×2 (08:30→21:09)
[2017-08-22] MEDS: morphine 2 MG INJ IV ×2 (12:54→17:46)
[2017-08-22] MEDS: HYDROCODONE/APAP (5/325) TAB PO (21:09)
[2017-08-22] MEDS: LORAZEPAM 2 MG INJ IV (22:35)
[2017-08-23] MEDS: METOCLOPRAMIDE (1 MG/ML) 10 ML CUP PEG ×4 (06:15→17:25)
[2017-08-23] MEDS: LEVOFLOXACIN 500 MG TAB PO (06:15)
[2017-08-23 08:21] LABS: ADD MAN DIFF? NO
[2017-08-23 08:25] LABS: WHITE BLOOD COUNT 5.6 10^3/ul (4.8-10.8)
[2017-08-23 08:25] LABS: ABNORMAL IP MESSAGE 1; BASOPHILS % 0.7 % (0.0-2.0); EOSINOPHILS # 0.1 10^3/ul (0.0-0.5); EOSINOPHILS % 1.8 % (0.0-7.0); HEMOGLOBIN 11.9 g/dl (14.0-18.0); LYMPHOCYTES # 1.4 10^3/ul (0.8-2.9); LYMPHOCYTES % 25.3 % (15.0-51.0); MEAN CORPUSCULAR HEMOGLOBIN 26.3 pg (29.0-33.0); MEAN CORPUSCULAR HGB CONC 32.2 g/dl (32.0-37.0); MEAN CORPUSCULAR VOLUME 81.9 fl (82.0-101.0); MONOCYTE # 0.3 10^3/ul (0.3-0.9); MONOCYTES % 5.9 % (0.0-11.0); NEUTROPHIL # 3.4 10^3/ul (1.6-7.5); NEUTROPHILS % 60.7 % (39.0-77.0); PLATELET COUNT 351 10^3/UL (140-415); POSITIVE DIFF @See below; RED BLOOD COUNT 4.52 10^6/ul (4.70-6.10); RED CELL DISTRIBUTION WIDTH 14.2 % (11.5-14.5)
[2017-08-23] MEDS: ALBUTEROL/IPRATROPIUM (NEB) 3 ML AMP HHN ×3 (08:45→20:25)
[2017-08-23 08:47] LABS: ANION GAP 18 (8-16); BLOOD UREA NITROGEN 6 mg/dl (7-20); CALCIUM 9.3 mg/dl (8.4-10.2); CARBON DIOXIDE 24 mmol/L (21-31); CHLORIDE 105 mmol/L (97-110); CREATININE 0.59 mg/dl (0.61-1.24); GLUCOSE 86 mg/dl (70-220); POTASSIUM 3.9 mmol/L (3.5-5.1); SODIUM 143 mmol/L (135-144)
[2017-08-23] MEDS: METOPROLOL 25 MG TAB GTB ×2 (08:47→20:38)
[2017-08-23] MEDS: LEVETIRACETAM (100 MG/ML) 5ML CUP PO ×2 (08:55→20:28)
[2017-08-23] MEDS: FAMOTIDINE 20 MG TAB PO ×2 (08:55→20:29)
[2017-08-23] MEDS: morphine 2 MG INJ IV ×3 (08:57→20:29)
[2017-08-23] MEDS: NYSTATIN 30 GM POWDER BTL TOP (08:58)
[2017-08-23] MEDS: ONDANSETRON 4 MG INJ IV (10:41)
[2017-08-23] MEDS: VANCOMYCIN HCL 250 MG/5ML POSYG PO ×2 (13:37→17:25)
[2017-08-23] MEDS: SOD CHLORIDE 0.45% 1,000 ML IV (15:30)
[2017-08-23] MEDS: LORAZEPAM 2 MG INJ IV (21:55)
[2017-08-24] MEDS: METOCLOPRAMIDE (1 MG/ML) 10 ML CUP PEG ×4 (00:40→18:19)
[2017-08-24] MEDS: VANCOMYCIN HCL 250 MG/5ML POSYG PO ×4 (00:40→18:19)
[2017-08-24] MEDS: SOD CHLORIDE 0.45% 1,000 ML IV ×3 (01:30→15:20)
[2017-08-24 07:20] LABS: ADD MAN DIFF? NO
[2017-08-24 07:28] LABS: BASOPHILS % 0.5 % (0.0-2.0); EOSINOPHILS # 0.1 10^3/ul (0.0-0.5); EOSINOPHILS % 1.5 % (0.0-7.0); HEMATOCRIT 34.4 % (42.0-52.0); HEMOGLOBIN 11.2 g/dl (14.0-18.0); LYMPHOCYTES # 1.3 10^3/ul (0.8-2.9); LYMPHOCYTES % 22.4 % (15.0-51.0); MEAN CORPUSCULAR HEMOGLOBIN 26.6 pg (29.0-33.0); MEAN CORPUSCULAR HGB CONC 32.6 g/dl (32.0-37.0); MEAN CORPUSCULAR VOLUME 81.7 fl (82.0-101.0); MEAN PLATELET VOLUME 9.1 fl (7.4-10.4); MONOCYTE # 0.4 10^3/ul (0.3-0.9); NEUTROPHIL # 3.8 10^3/ul (1.6-7.5); NEUTROPHILS % 65.8 % (39.0-77.0); PLATELET COUNT 328 10^3/UL (140-415); RED BLOOD COUNT 4.21 10^6/ul (4.70-6.10); RED CELL DISTRIBUTION WIDTH 14.6 % (11.5-14.5)
[2017-08-24 07:28] LABS: WHITE BLOOD COUNT 5.8 10^3/ul (4.8-10.8)
[2017-08-24 08:15] LABS: ANION GAP 15 (8-16); BLOOD UREA NITROGEN 7 mg/dl (7-20); CALCIUM 9.6 mg/dl (8.4-10.2); CARBON DIOXIDE 26 mmol/L (21-31); CHLORIDE 105 mmol/L (97-110); CREATININE 0.61 mg/dl (0.61-1.24); GLUCOSE 92 mg/dl (70-220); SODIUM 142 mmol/L (135-144)
[2017-08-24] MEDS: morphine 2 MG INJ IV ×3 (09:01→18:16)
[2017-08-24] MEDS: LEVETIRACETAM (100 MG/ML) 5ML CUP PO (09:01)
[2017-08-24] MEDS: NYSTATIN 30 GM POWDER BTL TOP (09:02)
[2017-08-24] MEDS: METOPROLOL 25 MG TAB GTB (09:02)
[2017-08-24] MEDS: FAMOTIDINE 20 MG TAB PO (09:02)
[2017-08-24] MEDS: LORAZEPAM 2 MG INJ IV ×3 (09:05→18:16)
[2017-08-24] MEDS: ALBUTEROL/IPRATROPIUM (NEB) 3 ML AMP HHN ×2 (09:20→13:36)
== END 2017-08-24 19:59 | DRG 25 ==
LOC: REC 11:11 → TEL 07-28 00:33 → ICU 07-20 12:21 → TEL 18:19
PROVIDERS: Neurological Surgery
PROC: 00160J6 Bypass Cerebral Ventricle to Peritoneal Cavity with Synthetic Substitute, Open Approach (ICD-10-PCS; principal; 2017-07-15 12:18)
PROC: 0NU007Z Supplement Skull with Autologous Tissue Substitute, Open Approach (ICD-10-PCS; 2017-07-15 12:18)
PROC: 0JC80ZZ Extirpation of Matter from Abdomen Subcutaneous Tissue and Fascia, Open Approach (ICD-10-PCS; 2017-07-15 12:18)
PROC: 5A1955Z Respiratory Ventilation, Greater than 96 Consecutive Hours (ICD-10-PCS; 2017-07-15 12:18)
PROC: 30233N1 Transfusion of Nonautologous Red Blood Cells into Peripheral Vein, Percutaneous Approach (ICD-10-PCS; 2017-07-15 12:18)
DX: G91.9 Hydrocephalus, unspecified (principal); G93.49 Other encephalopathy; A41.9 Sepsis, unspecified organism; Z93.0 Tracheostomy status; J96.11 Chronic respiratory failure with hypoxia; D62 Acute posthemorrhagic anemia; R13.10 Dysphagia, unspecified; Z87.820 Personal history of traumatic brain injury; D64.9 Anemia, unspecified; Z93.1 Gastrostomy status; E87.6 Hypokalemia; J20.8 Acute bronchitis due to other specified organisms
CPT/HCPCS: 36430; 36600; 70450; 71010; 71045; 74230; 80048; 80053; 80202; 81003; 82803; 82945; 82962; 83605; 83735; 84100; 84157; 85025; 85610; 85730; 86078; 86850; 86900; 86901; 86920; 87040; 87070; 87081; 87086; 89051; 92507; 92522; 92526; 92610; 92611; 93005; 94002; 94003; 94640; 94799; 97003; 97110; 97162; 97167; 97530; 97535